=== PATIENT | female | born 1975 | race Caucasian/White ===

== ENCOUNTER 2021-11-15 10:40 | Day surgery (SDC) | payer OTHER ==
[2021-11-15] MEDS ORDERED: MORPHINE 4 MG/ML SYR ONE (11:40)
[2021-11-15] MEDS ORDERED: NA CHLORIDE 0.9% 1,000 ML ONE (11:40)
[2021-11-15] MEDS ORDERED: ONDANSETRON 4 MG/2 ML VIAL ONE ×3 (11:40→14:13)
[2021-11-15 11:49] LABS: Absolute Lymphocytes (CBC) 1.5 K/uL (0.7-4.9); Hematocrit 36.1 % (36.0-45.0); Lymphocytes % 8.1 % (15.3-44.8); RBC Red Blood Cell Count 4.61 M/uL (3.86-4.86)
[2021-11-15 12:05] LABS: Albumin 3.2 g/dL (3.4-5.0); Bilirubin Total 0.2 mg/dL (0.2-1.0); Potassium 3.6 mmol/L (3.5-5.1); Protein, Total 6.7 g/dL (6.4-8.2)
[2021-11-15 12:08] LABS: Urine Blood 3+ (Negative); Urine Glucose Negative (Negative); Urine Protein 3+ (Negative); Urine Specific Gravity 1.025 (1.005-1.030)
[2021-11-15 12:16] LABS: Urine Specific Gravity/Preg 1.025 (1.005-1.030)
--- NOTE | 2021-11-15 12:46 | RAD REPORT ---
EXAM DESCRIPTION: CTAbdomen Pelvis W Contrast - 11/15/2021 12:31 pm CLINICAL HISTORY: Abdominal pain. LLQ abdominal pain COMPARISON: No comparisons TECHNIQUE: Biphasic CT imaging of the abdomen and pelvis was performed with 100 ml non-ionic IV cont rast. All CT scans are performed using dose optimization technique as appropriate and may include automated exposure control or mA/KV adjustment according to patient size. FINDINGS: The lung bases are clear.Cholecystectomy. The liver, spleen, pancreas, adrenal glands and right kidney are within normal limits. A large 15 x 12 mm stone is present proximal left ureter resulting in severe left-sided hydronephrosi s. Moderate perinephric fluid is seen on the left as well. A few punctate stones are present in the i nferior calices of the left kidney also. No bowel obstruction, free air, free fluid or abscess. The appendix is normal. No evidence of signi ficant lymphadenopathy. No suspicious bony findings. IMPRESSION: A large stone is present in the proximal left ureter resulting in severe left-sided hydr onephrosis. Moderate surrounding perinephric fluid fat stranding is present. Additional punctate left-sided nephrolithiasis is present.
[2021-11-15] MEDS ORDERED: CEFTRIAXONE 2000 MG/VIAL ONE (13:09)
[2021-11-15] MEDS ORDERED: FENTANYL CITR 100 MCG/2 ML ONE (13:42)
[2021-11-15] MEDS ORDERED: LIDOCAINE 1% MPF 5 ML VIAL ONE (13:43)
[2021-11-15] MEDS ORDERED: propofoL 200 MG/20 ML VIAL IV ONE (13:43)
[2021-11-15] MEDS ORDERED: MIDAZOLAM HCL 2 MG/2 ML INJ ONE (13:43)
[2021-11-15] MEDS ORDERED: Ringers Lactate 1,000 ML IV ONE (13:43)
[2021-11-15] MEDS ORDERED: dexAMETHasone 10 MG/ML VIAL ONE (14:12)
[2021-11-15] MEDS ORDERED: EPHEDRINE SULF 50 MG/ML VIAL ONE (14:24)
--- NOTE | 2021-11-15 14:28 | EDPHYS ---
Physician Documentation [facility] Name: Pamela Alcala Age: 46 yrs Sex: Female : 1975 Arrival Date: 11/15/2021 Time: 10:41 Bed 8 Private MD: ED Physician Amado De La Rosa HPI: 11/15 11:30 This 46 yrs old Female presents to ER via Ambulatory with complaints of Back Pain - jmm left side. 11:30 The patient presents with pain that is acute. Onset: The symptoms/episode jmm began/occurred acutely, today. The pain radiates to the abdomen. Associated signs and symptoms: Pertinent positives: vomiting. Modifying factors: The patient symptoms are alleviated by nothing, the patient symptoms are aggravated by movement. The patient has not experienced similar symptoms in the past. Is a 46-year-old female with history of diabetes mellitus, hypertension the presents emerged department with complaints of left flank pain beginning earlier today with vomiting. Patient was treated for UTI last week due to hematuria. . Historical: - Allergies: 11:08 No Known Allergies; iw - Home Meds: 11:08 Metformin Oral [Active]; Bupropion Oral [Active]; Metoprolol Tartrate Oral [Active]; iw - PMHx: 11:08 Diabetes mellitus; Hypertensive disorder; iw - PSHx: 11:08 hysterectomy; Cholecystectomy; iw - Immunization history:: Client reports receiving the 2nd dose of the Covid vaccine. - Social history:: Smoking status: . ROS: 11:30 Constitutional: Negative for fever, chills, and weight loss, Cardiovascular: Negative jmm for chest pain, palpitations, and edema, Respiratory: Negative for shortness of breath, cough, wheezing, and pleuritic chest pain. 11:30 Abdomen/GI: Positive for vomiting. 11:30 Back: Positive for flank pain, on the left. 11:30 All other systems are negative. Exam: 11:30 Constitutional: This is a well developed, well nourished patient who is awake, alert, jmm and in no acute distress. Head/Face: atraumatic. Eyes: EOMI, no conjunctival erythema appreciated ENT: Moist Mucus Membranes Neck: Trachea midline, Supple Chest/axilla: Normal chest wall appearance and motion. Cardiovascular: Regular rate and rhythm. No edema appreciated Respiratory: Normal respirations, no respiratory distress appreciated Abdomen/GI: Non distended, soft 11:30 Back: pain, that is moderate, of the left flank. 11:30 Musculoskeletal/extremity: ROM: intact in all extremities. 11:30 Skin: Appearance: Color: normal in color. 11:30 Neuro: Orientation: is normal, Mentation: is normal, Memory: is normal. 11:30 Psych: Behavior/mood is pleasant, cooperative. Vital Signs: 11:07 Pulse 113; Resp 18; Temp 99.1; Pulse Ox 98% on R/A; Weight 81.65 kg; Height 5 ft. 4 in. iw (162.56 cm); Pain 9/10; 12:00 BP 102 / 63; Pulse 75; Resp 18; Pulse Ox 100% ; jh6 13:21 BP 99 / 69; Pulse 75; Resp 17 S; Pulse Ox 100% on R/A; jd3 11:07 Body Mass Index 30.90 (81.65 kg, 162.56 cm) iw MDM: 11:31 Patient medically screened. nicki 13:17 Data reviewed: vital signs, nurses notes. Counseling: I had a detailed discussion with nicki the patient and/or guardian regarding: the historical points, exam findings, and any diagnostic results supporting the discharge/admit diagnosis, lab results, radiology results. ED course: I discussed the patient with Dr. Siegel who will take the patient to the OR. 11/15 11:32 Order name: CBC with Diff; Complete Time: 11:55 [facility] 11/15 11:32 Order name: CMP; Complete Time: 12:07 [facility] 11/15 11:32 Order name: Lipase; Complete Time: 12:07 [facility] 11/15 11:55 Order name: Urine Culture [facility] 11/15 12:08 Order name: Urine Dipstick-Ancillary; Complete Time: 12:11 [facility] 11/15 12:08 Order name: Urine --Ancillary (enter results); Complete Time: 12:22 11/15 11:32 Order name: IV Saline Lock; Complete Time: 11:43 [facility] 11/15 11:32 Order name: Labs collected and sent; Complete Time: 11:43 [facility] 11/15 11:34 Order name: CT Abd/Pelvis - IV Contrast Only; Complete Time: 12:52 [facility] 11/15 13:07 Order name: SARS-COV-2 RT PCR (Document "Date of Onset" if Symptomatic); Complete Time: jd3 14:27 11/15 11:32 Order name: Urine Dipstick-Ancillary (obtain specimen); Complete Time: 12:07 [facility] 11/15 11:32 Order name: Urine Test (obtain specimen); Complete Time: 12:07 [facility] Administered Medications: 11:42 Drug: NS 0.9% 1000 ml Route: IV; Rate: 1 bolus; Site: right antecubital; jd3 11:42 Drug: Zofran (Ondansetron) 4 mg Route: IVP; Site: right antecubital; jd3 11:43 Drug: morphine 4 mg Route: IVP; Site: right antecubital; jd3 13:09 Drug: Rocephin (cefTRIAXone) 2 grams Route: IV; Rate: calculated rate; Site: right jh6 antecubital; Disposition Summary: 11/15/21 14:27 Hospitalization Ordered Hospitalization Status: Observation [facility] Provider: Atilio Siegel [facility] Location: Operating Room [facility] Condition: Stable [facility] Problem: new [facility] Symptoms: are unchanged [facility] Bed/Room Type: Standard [facility] Room Assignment: [facility] Diagnosis - Calculus of ureter [facility] - UTI/ Urinary tract infection, site not specified [facility] Discharge Instructions: - Discharge Summary Sheet eb Forms: - Medication Reconciliation Form [facility] - SBAR form eb Addendum: 11/17/2021 07:28 Co-signature as Attending Physician, Amado De La Rosa MD I agree with the assessment and k dr plan of care. Signatures: Dispatcher [employer] EDNH Amado De La Rosa MD MD kdr Mickail, Joel, PA PA [facility] Dara Miles, RN FELIPE iw Lenny Davis RN RN jd3 Hafsa Kebede RN RN jh6
--- NOTE | 2021-11-15 14:28 | ER ---
Nurse's Notes [facility] Name: Pamela Alcala Age: 46 yrs Sex: Female : 1975 Arrival Date: 11/15/2021 Time: 10:41 Bed 8 Private MD: Diagnosis: Calculus of ureter;UTI/ Urinary tract infection, site not specified Presentation: 11/15 11:07 Chief complaint: Patient states: the other day she had full check up and was told she iw had a UTI with blood in her urine and was put on abx, finished yesterday, and this morning woke up with left mid back pain. Coronavirus screen: At this time, the client does not indicate any symptoms associated with coronavirus-19. Ebola Screen: Patient negative for fever greater than or equal to 101.5 degrees Fahrenheit, and additional compatible Ebola Virus Disease symptoms Patient denies exposure to infectious person. Patient denies travel to an Ebola-affected area in the 21 days before illness onset. No symptoms or risks identified at this time. Initial Sepsis Screen: Does the patient meet any 2 criteria? No. Patient's initial sepsis screen is negative. Does the patient have a suspected source of infection? No. Patient's initial sepsis screen is negative. Risk Assessment: Do you want to hurt yourself or someone else? Patient reports no desire to harm self or others. Onset of symptoms was November 15, 2021. 11:07 Method Of Arrival: Ambulatory iw 11:07 Acuity: CROW 3 iw Historical: - Allergies: 11:08 No Known Allergies; iw - Home Meds: 11:08 Metformin Oral [Active]; Bupropion Oral [Active]; Metoprolol Tartrate Oral [Active]; iw - PMHx: 11:08 Diabetes mellitus; Hypertensive disorder; iw - PSHx: 11:08 hysterectomy; Cholecystectomy; iw - Immunization history:: Client reports receiving the 2nd dose of the Covid vaccine. - Social history:: Smoking status: . Screenin:33 Abuse screen: Denies threats or abuse. Nutritional screening: Nutritional screening: No jd3 deficits noted. Tuberculosis screening: No symptoms or risk factors identified. Fall Risk Ambulatory Aid- None/Bed Rest/Nurse Assist (0 pts). Gait- Normal/Bed Rest/Wheelchair (0 pts) Mental Status- Oriented to own ability (0 pts). Total Elena Fall Scale indicates No Risk (0-24 pts). Assessment: 11:32 General: Appears in no apparent distress. comfortable, Behavior is calm, cooperative, jd3 appropriate for age. Pain: Complains of pain in left flank Quality of pain is described as radiating. Neuro: Level of Consciousness is awake, alert, obeys commands, Oriented to person, place, time, situation. Cardiovascular: Denies chest pain, Capillary refill < 3 seconds Patient's skin is warm and dry. Respiratory: Airway is patent Respiratory effort is even, unlabored, Respiratory pattern is regular, symmetrical, Denies cough, shortness of breath. GI: No signs and/or symptoms were reported involving the gastrointestinal system. : No signs and/or symptoms were reported regarding the genitourinary system. EENT: No signs and/or symptoms were reported regarding the EENT system. Derm: Skin is intact, Skin is dry, Skin is normal, Skin temperature is warm. Musculoskeletal: Circulation, motion, and sensation intact. Range of motion: intact in all extremities. 13:20 Reassessment: Patient appears in no apparent distress at this time. Patient and/or jd3 family updated on plan of care and expected duration. Pain level reassessed. Patient is alert, oriented x 3, equal unlabored respirations, skin warm/dry/pink. report given to OR nurses. pt to OR with OR nurse. Vital Signs: 11:07 Pulse 113; Resp 18; Temp 99.1; Pulse Ox 98% on R/A; Weight 81.65 kg; Height 5 ft. 4 in. iw (162.56 cm); Pain 9/10; 12:00 BP 102 / 63; Pulse 75; Resp 18; Pulse Ox 100% ; jh6 13:21 BP 99 / 69; Pulse 75; Resp 17 S; Pulse Ox 100% on R/A; jd3 11:07 Body Mass Index 30.90 (81.65 kg, 162.56 cm) ED Course: 10:41 Patient arrived in ED. am2 11:08 Triage completed. iw 11:09 Arm band placed on. iw 11:18 Sherif Camargo PA is PHCP. [facility] 11:18 Amado De La Rosa MD is Attending Physician. [facility] 11:30 Lenny Davis RN is Primary Nurse. jd3 11:33 Patient has correct armband on for positive identification. Bed in low position. Call jmaverick light in reach. Side rails up X 1. Pulse ox on. NIBP on. 11:43 Inserted saline lock: 20 gauge in right antecubital area, using aseptic technique. j Blood collected. placed by [facility]. 12:[address] 6 12:33 CT Abd/Pelvis - IV Contrast Only In Process Unspecified. EDMS 14:27 Atilio Siegel MD is Hospitalizing Provider. ermelinda Administered Medications: 11:42 Drug: NS 0.9% 1000 ml Route: IV; Rate: 1 bolus; Site: right antecubital; jd3 11:42 Drug: Zofran (Ondansetron) 4 mg Route: IVP; Site: right antecubital; jd3 11:43 Drug: morphine 4 mg Route: IVP; Site: right antecubital; j 13:09 Drug: Rocephin (cefTRIAXone) 2 grams Route: IV; Rate: calculated rate; Site: right [facility] antecubital; Outcome: 14:27 Decision to Hospitalize by Provider. [facility] 14:28 Patient left the ED. iw Signatures: Dispatcher [employer] EDMS Sherif Camargo PA PA jmm Williams, Irene, RN Marcela Davenport Jonathon RN Hafsa Tomlinson RN RN jh6
[2021-11-15] MEDS ORDERED: HYDROCODONE/APAP 5/325 MG TAB PO PRN (14:47)
[2021-11-15] MEDS ORDERED: PHENAZOPYRIDINE 100MG TAB PO ONE ×2 (14:47→16:03)
--- NOTE | 2021-11-15 14:54 | RAD REPORT ---
EXAM DESCRIPTION: RAD - Urography Retrograde - 11/15/2021 2:42 pm CLINICAL HISTORY: ICD N 20.0 FINDINGS: 17 fluoroscopic spot images obtained. Fluoroscopy time 1.2 minutes Left ureter was cannulated and contrast administered. Subsequently an ureteral stent was placed. Exam ination was performed by Dr Siegel
[2021-11-15] MEDS ORDERED: HYDROCODONE/APAP 5/325 MG TAB ONE (16:03)
[2021-11-15 16:33] VITALS: BP 110/57; TEMP 97.7; O2SAT 99
--- NOTE | 2021-11-15 18:58 | CON ---
Reason For Consultation: Obstructive ureterolithiasis. History Of Present Illness: Ms. Alcala is a 46-year-old woman on medications for polycystic ovaria n syndrome and with a history of anxiety disorder. G3, P3, vaginal deliveries, who presents with sev ere left flank pain that radiated into the anterior abdomen starting this morning. She notes she was seen last week with her primary care physician with microscopic blood in the urine and some fever or febrile symptoms associated with what was thought to be a UTI. She was treated with an antibiotic w hich sounds like Macrobid at that time and her symptoms improved. She woke up this morning, however, with the pain and presented to the emergency department for evaluation. She denies any associated f ever or chills at this point. She has had some nausea but no vomiting. Past Medical History: Polycystic ovarian syndrome and anxiety disorder. Past Surgical History: 1.Cholecystectomy in 1998. 2.Laparoscopic hysterectomy in 2005. Allergies: SHE DENIES ANY KNOWN DRUG ALLERGIES. Social History: She denies any history of smoking or recreational drug use. Physical Examination: General: She is somewhat anxious appearing, but in no acute distress. There is no dyspnea or signs of respiratory distress. No cervical or supraclavicular adenopathy or thyromegaly is noted. ABDOMEN: Soft, nontender, and nondistended with no rebound or guarding. She has mild left upper luc drant abdominal tenderness to deep palpation and CVA tenderness, severe, present on the left. MSK: She is ambulatory with ease and without use of walking aids or signs of musculoskeletal limitat ions. Laboratory Data: I reviewed the images of a CT scan performed today at 12:31 p.m. which reveals the presence of a 15 x 12 mm stone in the proximal left ureter. This was an IV contrast scan; so, there were no significant renal calculi noted, but potential for small 2 or 3 mm calculi, particularly in t he lower pole is possible. The right kidney was normal. The left kidney was massively hydronephroti c with significant perinephric stranding present. Assessment And Recommendations: This is a 46-year-old, G3, P3, vaginal deliveries, a woman with anxi ety disorder and polycystic ovarian syndrome who presents with first-time stone forming a 15 mm calcu andria within her left proximal ureter causing massive hydronephrosis, perinephric stranding, and left f lank pain. I recommended to the patient, urgent attempt at left ureteral stent placement, but I counseled her on the potential need for left percutaneous nephrostomy tube showed the stent not pass. I explained th e risks of the procedure to include the risk of bleeding and infection, urethral stricture formation, injury to the ureter, and failure to achieve the desired result of successful stent placement. I al so explained that she would need to be transferred to the [facility] for percutaneous nephrostomy tube placement should that be required. She completed the consent with my guidance and will be randal geagus accordingly. She received a dose of ceftriaxone IV antimicrobial prophylaxis in the emergency de partment. We will determine whether she requires inpatient admission based on whether she is or beco mes febrile at any point during the emergency department via a perioperative and postoperative course . If so, we will admit her accordingly for observation and management. LISA/BARRY Voice ID: [id number] Report ID: [id number]
--- NOTE | 2021-11-16 02:16 | OP ---
Surgeon: GAEL CHILDS Preoperative Diagnoses: 1.Left obstructive ureterolithiasis 15 mm. 2.Left hydronephrosis. 3.Left flank pain. Postoperative Diagnoses: 1.Left obstructive ureterolithiasis 15 mm. 2.Left hydronephrosis. 3.Left flank pain. 4.High-grade left ureteral obstruction. Principal Procedures: 1.Cystoscopy. 2.Left retrograde pyelography. 3.Complicated left ureteral stent placement. Indication For Procedure: Ms. Alcala presented to the emergency department this morning with compl aints of severe left flank pain radiating into the anterior abdomen associated with the presence of a 15 mm proximal ureteral calculus causing severe obstruction with hydronephrosis and perinephric stra nding. She presents for definitive operative management to relieve the obstruction of the kidney and was counseled on the potential need for percutaneous nephrostomy placement. Procedure In Detail: The patient was consented in the preoperative holding area before being transfe rred to the operative suite, where general anesthesia was induced. She was given ceftriaxone IV anti microbial prophylaxis in the Emergency Department which was sufficient for the operative excursion, a nd pneumo boots were provided for DVT prophylaxis. She was placed in the lithotomy position, padded, and secured to the table appropriately. Her genitalia were prepped using Hibiclens and draped in st andard fashion. The case was begun using a 22-Vietnamese rigid cystoscope to traverse the urethra and in to the bladder. The bladder was surveyed and there were no mucosal lesions, foreign bodies, or stone s noted. The ureteral orifices were orthotopic in location, and the left ureteral orifice was cannul ated using the tip of a 5-Vietnamese ureteral access catheter. Left retrograde pyelography: Using a 70:30 mixture of Omnipaque and saline, the contrast was injected into the lumen of the 5-Fren ch ureteral access catheter and did propagate with some resistance up a dilated distal ureter before meeting a point of obstruction in the proximal ureter where a visible radio-opaque large calculus was noted to be present. The contrast would not pass beyond the stone into the kidney, which had a degr ee of contrast present from the prior IV contrast CT administered. There was evident massive hydrone phrosis. I then advanced the 5-Vietnamese ureteral access catheter into the ureter just beneath the ston e and again forcefully injected contrast in an effort to dislodge the stone from its impacted positio n sufficiently to have some contrast emanate around the stone. Despite multiple attempts at that, no significant contrast emanated around the stone and into the ureter proximal to it. I then employed a Sensor wire to attempt to pass beyond the stone into the collecting system, but the Sensor wire sim ply coiled around the sides of the stone. As a result, I switched to a 0.35 Glidewire, which I passe d via the 5-Vietnamese ureteral access catheter. It also would coil around the stone and would not pass successfully beyond the stone into the collecting system. Multiple attempts were made, and right [facility], one last attempt was made and the wire did successfully pass beyond the stone and into the collecting system where it coiled in the hydronephrotic space appropriately. I then attempted to pass the 5-Vietnamese ureteral access catheter over the Glidewire into the collecting system beyond the stone, but it would not pass; so, I utilized a 4.8-Vietnamese double-J stent, which I was able to pass be yond the stone with a mild degree of difficulty, but ultimately get it into the collecting system whe re it coiled within the renal pelvis successfully. An additional coil was formed within the bladder and so I decompressed her bladder of fluid and urine, took the patient out of the lithotomy position, and she was then awakened from general anesthesia. She was then transferred to a stretcher before courtney amos transferred to the recovery room in good condition. Complications: None. Discharge Disposition: She will be observed in the recovery and if she has no ongoing signs of SIRS or active infection with absence of a febrile reaction and otherwise her pain can be reasonably contr olled, we will plan to discharge her home today. She will be informed that should she have any fever s with temperatures greater than 100.4 Fahrenheit, she should notify us for possible admission or com e back to the emergency department. She will ultimately require follow up in the Urology Clinic to yoseph broderick definitive left ureteroscopy with laser lithotripsy of her large stone. She will also be a nikki date for ESWL given the radio-opaque nature of the stone if she wanted to trial that approach. LISA/EDWINL Voice ID: [id number] Report ID: [id number]
== END 2021-11-15 16:32 | disposition home or self-care (01) ==
LOC: ER 10:40 → DS 15:28
PROVIDERS: ATTEND Urology
PROC: 0T9780Z Drainage of Left Ureter with Drainage Device, Via Natural or Artificial Opening Endoscopic (ICD-10-PCS; principal; 2021-11-15 13:00)
DX: N13.2 Hydronephrosis with renal and ureteral calculous obstruction (principal); R10.9 Unspecified abdominal pain; Z20.822 Contact with and (suspected) exposure to COVID-19
CPT/HCPCS: 87088; 85025; 87086; 36415; 81025; 87077; 87186; 81003; 83690; 80053; 74177; 74420; 96375; 96374; 99284; 52332; U0003; Q9967; J2704; J2250; J3010; J1100; J7120; J7030; J2405 ×3; J0696

== ENCOUNTER 2021-11-26 06:03 | Day surgery (SDC) | payer OTHER ==
[2021-11-26] MEDS ORDERED: Ringers Lactate 1,000 ML IV ONE (06:43)
[2021-11-26] MEDS ORDERED: CIPROFLOXACIN HCL 500 MG TAB ONE (06:48)
[2021-11-26] MEDS ORDERED: CELECOXIB 100 MG CAPSULE ONE (07:08)
[2021-11-26] MEDS ORDERED: ACETAMINOPHEN 500 MG TAB ONE (07:08)
[2021-11-26] MEDS ORDERED: propofoL 200 MG/20 ML VIAL IV ONE ×2 (07:09→08:37)
[2021-11-26] MEDS ORDERED: FENTANYL CITR 100 MCG/2 ML ONE (07:10)
[2021-11-26] MEDS ORDERED: MIDAZOLAM HCL 2 MG/2 ML INJ ONE (07:10)
[2021-11-26] MEDS ORDERED: LIDOCAINE 1% MPF 5 ML VIAL ONE (07:10)
[2021-11-26] MEDS ORDERED: PHENAZOPYRIDINE 100MG TAB PO ONE ×2 (07:40→10:16)
[2021-11-26] MEDS ORDERED: HYDROCODONE/APAP 5/325 MG TAB PO PRN (07:40)
[2021-11-26] MEDS ORDERED: dexAMETHasone 10 MG/ML VIAL ONE (08:01)
[2021-11-26] MEDS ORDERED: KETOROLAC 30 MG/ML INJ ONE (08:01)
[2021-11-26] MEDS ORDERED: ONDANSETRON 4 MG/2 ML VIAL ONE (08:03)
[2021-11-26] MEDS ORDERED: HYDROCODONE/APAP 5/325 MG TAB ONE (10:16)
[2021-11-26 10:41] VITALS: BP 116/53; TEMP 97; O2SAT 99
--- NOTE | 2021-11-26 20:52 | OP ---
Surgeon: GAEL CHILDS Preoperative Diagnosis: 15 mm proximal ureterolithiasis. Postoperative Diagnoses: 1.15 mm proximal ureterolithiasis. 2.Proximal left ureteral stricture disease due to impacted calculus. Principal Procedures: 1.Cystoscopy. 2.Left retrograde pyelography. 3.Left ureteroscopy with laser lithotripsy. 4.Stone basketing. 5.Left ureteral stent exchange. Indication For Procedure: Mrs. Alcala presented to the [facility] after having been seen via [facility] with an obstructing 15 mm proximal ureteral calculus with associated perineph yanira stranding and signs of SIRS, possible sepsis. She underwent left ureteral stent placement on that was complicated by the extensive impaction of the calculus and inability to get contrast to pass beyond the stone into the collecting system. However, with several attempts, I was able to pass a Glidewire beyond the stone into the collecting system and a 4.8-Malaysian stent. She presents to day for definitive management. Procedure In Detail: The patient was consented in the preoperative holding area before being transfe rred to the operative suite, where general anesthesia was induced. She had been given a dose of cipr ofloxacin 500 mg oral antimicrobial prophylaxis about 1 hour prior to incision. Pneumo boots were pr ovided for DVT prophylaxis. She was placed in the lithotomy position, padded and secured to the tabl e appropriately. Her genitalia were prepped using Hibiclens and she was draped in standard fashion. The case was begun using a 22-Malaysian rigid cystoscope to traverse the urethra and into the bladder. An alligator grasper was used to grasp the stent after the bladder was decompressed of fluid and uri ne. The stent was then delivered via the meatus leaving the proximal tip of the stent in the proxima l ureter and in fact fluoroscopically still within the renal pelvis. As a result, I passed a Sensor wire via the 4.8-Malaysian stent and did coil it within the putative collecting system. Over the Sensor wire, I then passed a dual-lumen catheter after removing the stent and performed a retrograde pyelog rubén. Left retrograde pyelography: Using a 70:30 mixture of Omnipaque and saline, contrast was injected vi a the second lumen of the dual-lumen catheter and did propagate up a dilated distal ureter before enc ountering the stone, which was visible fluoroscopically. A wisp of contrast did go beyond the stone, but significant obstruction was still present. I then advanced the dual-lumen catheter up the urete r just distal to the stone and injected another bolus of contrast, this time having more contrast pro pagate into a still-dilated collecting system, confirming appropriate intraluminal location of the wi re within the renal upper pole. I then removed the dual-lumen catheter and utilized a semi-rigid ure teroscope, which was guided up the ureter with the aid of a Bentson guidewire placed via the second l umen of the dual-lumen catheter. The Bentson guidewire was removed and the semi-rigid ureteroscope w as then advanced to the level of the stone, where a 365 nanometer laser fiber with power settings of 0.8 joules and 8 hertz was initially used before alternating with 0.4 joules and 20 hertz and ultimat ranjith 0.8 joules and 15 hertz to completely dust the very large stone and remove it out of its site of impaction within the ureter. I then visualized the ureter after the stone had been removed, and whil e the Sensor wire was indeed in the appropriate intraluminal location, there was an area of stricture disease that had formed due to the severe impacted nature of the stone. An image was taken of this documenting it. I thus removed the semi-rigid ureteroscope and again injected a bolus of contrast by backloading the dual-lumen catheter over the indwelling safety wire. There was a clear point of ure teral narrowing and obstruction at the location where the stone was previously, but contrast did proc eed up along the wire and entered the collecting system appropriately. So as a result, I then again passed the semi-rigid ureteroscope into the ureter, visualizing all of the stone dust there and utili zed a 1.9-Malaysian basket to grab several of the stone fragments on multiple passes and removed them fr om within the ureteral lumen. These were left in the bladder each time for ease of return into the u reter. After any significant stone size fragments were removed using the basket, I then placed a rig id cystoscope backloaded over the safety wire into the bladder and passed a 7-Malaysian by 26 cm double- J stent. A coil was observed fluoroscopically in the upper pole and one cystoscopically was formed i n the bladder. Her bladder was then decompressed of fluid and urine, and the stone dust was collecte d. This was sent for chemical analysis. The patient was then awakened from general anesthesia, take n out of the lithotomy position, transferred to a stretcher, and then transferred to the [facility] in good condition. Complications: None. Discharge Disposition: She should maintain the ureteral stent for at least 6-8 weeks given the alrea dy presence of the stricture to allow hopeful successful healing in an open configuration. I will di scharge her with 7 days of ciprofloxacin to ensure clearance of her prior infection. LISA/MODL Voice ID: [id number] Report ID: [id number]
== END 2021-11-26 10:33 | disposition home or self-care (01) ==
LOC: OR 06:03
PROVIDERS: ATTEND Urology
PROC: 0TC78ZZ Extirpation of Matter from Left Ureter, Via Natural or Artificial Opening Endoscopic (ICD-10-PCS; 2021-11-26)
PROC: 0T778DZ Dilation of Left Ureter with Intraluminal Device, Via Natural or Artificial Opening Endoscopic (ICD-10-PCS; 2021-11-26)
PROC: 0T9780Z Drainage of Left Ureter with Drainage Device, Via Natural or Artificial Opening Endoscopic (ICD-10-PCS; principal; 2021-11-26 07:30)
DX: N13.2 Hydronephrosis with renal and ureteral calculous obstruction (principal); R10.9 Unspecified abdominal pain; N39.0 Urinary tract infection, site not specified; Z20.822 Contact with and (suspected) exposure to COVID-19
CPT/HCPCS: 88300; 82360; 74450; 51610; 53899; 52332; U0003; J2704 ×2; J2250; J3010; J1100; J7120; J2405

== ENCOUNTER 2022-05-27 06:11 | Day surgery (SDC) | payer OTHER ==
[2022-05-23 15:52] LABS: Absolute Lymphocytes (CBC) 2.6 K/uL (0.7-4.9); Hematocrit 36.3 % (36.0-45.0); Lymphocytes % 24.2 % (15.3-44.8); MCV 82.3 fL (80-100); MPV 9.9 fL (7.6-11.3); RBC Red Blood Cell Count 4.42 M/uL (3.86-4.86)
[2022-05-23 16:01] LABS: Potassium 3.6 mmol/L (3.5-5.1)
--- NOTE | 2022-05-26 12:18 | EKG ---
Test Date: 2022-05-23 Test Time: 14:41:56 Platen Builder Up: MICKEY MEASUREMENT RESULTS: Intervals: Rate: 80 PA: 174 QRSD: 104 QT: 382 QTc: 440 [place]: P: 63 PA: 174 QRS: 39 T: 67 INTERPRETIVE STATEMENTS: Normal sinus rhythm Normal ECG No previous ECG available for comparison Electronically Signed On 05-26-22 12:13:33 GYROSCOPIC INSTRUMENT MECHANIC by Pawan Pratt
[2022-05-27] MEDS ORDERED: AMPICILLIN SODIUM 2 GM/VIAL VIAL ONE (06:32)
[2022-05-27] MEDS ORDERED: Ringers Lactate 1,000 ML IV ONE (06:32)
[2022-05-27] MEDS ORDERED: GENTAMICIN 100 MG/100 ML BAG 0 ML IV ONE (06:33)
[2022-05-27] MEDS ORDERED: Gentamicin Inj 200 MG in NA CHLORIDE 0.9% 100 ML IV SCH (07:00)
[2022-05-27] MEDS ORDERED: LIDOCAINE 1% MPF 5 ML VIAL ONE (07:18)
[2022-05-27] MEDS ORDERED: MIDAZOLAM HCL 2 MG/2 ML INJ ONE (07:18)
[2022-05-27] MEDS ORDERED: propofoL 200 MG/20 ML VIAL IV ONE (07:18)
[2022-05-27] MEDS ORDERED: FENTANYL CITR 100 MCG/2 ML ONE ×2 (07:18→08:01)
[2022-05-27] MEDS ORDERED: ROCURONIUM 50 MG/5 ML VIAL IV ONE (07:34)
[2022-05-27] MEDS ORDERED: NS 0.9% VIAL 10 ML ONE (07:34)
[2022-05-27] MEDS ORDERED: dexAMETHasone 10 MG/ML VIAL ONE (07:58)
[2022-05-27] MEDS ORDERED: KETOROLAC 30 MG/ML INJ ONE (07:59)
[2022-05-27] MEDS ORDERED: ONDANSETRON 4 MG/2 ML VIAL ONE (08:00)
[2022-05-27] MEDS ORDERED: GLYCOPYRROLATE 0.2 MG/ML SYR ONE (08:31)
[2022-05-27] MEDS ORDERED: NEOSTIGMINE 1 MG/ML -5 ML ONE (08:31)
[2022-05-27] MEDS ORDERED: PHENAZOPYRIDINE 100MG TAB PO ONE ×2 (09:19→10:09)
[2022-05-27] MEDS ORDERED: HYDROCODONE/APAP 5/325 MG TAB PO PRN (09:19)
--- NOTE | 2022-05-27 09:22 | RAD REPORT ---
EXAM DESCRIPTION: RAD - Urethrocystogrphy Retrograde - 05/27/2022 8:56 am FINDINGS: There were 24 images acquired during a fluoroscopic assisted placement of a left ureteral stent. Images show stepwise placement with no suspicious or unexpected finding. Fluoro time was 50 seconds.
[2022-05-27] MEDS ORDERED: HYDROMORPHONE HCL 1 MG/ML INJ ONE (09:29)
[2022-05-27 09:46] VITALS: O2SAT 96
--- NOTE | 2022-05-27 09:56 | OP ---
Surgeon: GAEL CHILDS Preoperative Diagnoses: 1.Left hydronephrosis. 2.History of left ureterolithiasis. Postoperative Diagnoses: 1.Left hydronephrosis. 2.History of left ureterolithiasis. 3.Left proximal ureteral stricture disease. 4.Gabriel's plaques. Principal Procedures: 1.Cystoscopy with left retrograde pyelography. 2.Left ureteroscopy with laser incision and dilation of proximal ureteral stricture disease. 3.Ureteroscopy with laser lithotripsy of renal calculi. 4.Left ureteral stent placement. Indication For Procedure: Ms. Alcala is a 47-year-old woman, who presented via the emergency depar tment with an obstructing large proximal left ureteral calculus causing hydronephrosis and obstructio n. A stent was placed and eventually the stone was managed definitively using ureteroscopy with lase r lithotripsy, but I noted at the time of the procedure that there was significant impaction of the s tone and a high risk for development of stricture disease. As a result, the patient was recommended to keep the stent for an extended period of time, which was done, and 3 months after the stent was re moved, I recommended an ultrasound which was performed. This unfortunately revealed recurrence of th e left-sided hydronephrosis suggestive of recurrence of stricture disease. The ultrasound also visua lized what it thought to be a 7 mm renal calculus. Procedure In Detail: The patient was consented in the preoperative holding area before being transfe rred to operative suite where general anesthesia was induced. She was given ampicillin and gentamici n 2-3 mg/kg IV antimicrobial prophylaxis, and pneumo boots were provided for DVT prophylaxis. She wa s placed in the lithotomy position, padded and secured to the table appropriately and her genitalia w ere prepped with Hibiclens. She was draped in standard fashion, and the case was begun using a 22-Fr ench rigid cystoscope to traverse the urethra and into the bladder with ease. The bladder was decomp ressed of urine and then refilled with sterile saline. The left ureteral orifice was visible and ort hotopic in location. I cannulated it using the tip of a 5-Yemeni ureteral access catheter and perfor med a retrograde pyelogram. Left retrograde pyelography: Using a 70:30 mixture of Omnipaque and saline, contrast was injected via the 5-Yemeni ureteral access catheter and did propagate up a nondilated distal ureter before the traversing a point of ureteral n arrowing at the UPJ and entering the renal pelvis where there was gnaa-zv-omaohdly pelviectasis and m ild caliectasis noted. Because of this narrowing that was at the level previously occupied by the ob structing calculus, I then passed a Sensor wire via the 5-Yemeni ureteral access catheter. It initia lly coiled at the level of the putative stricture disease, but I eventually was able to navigate it s uccessfully into the upper pole of the kidney. I then utilized a dual-lumen catheter to navigate a [employer] guidewire alongside the Sensor wire and successfully coiled within the upper pole of the kidne y. Over the [employer] guidewire, I then passed a flexible ureteroscope into the proximal ureter to a p oint of obstruction felt and visualized the area. There was some stricture disease that was somewhat filmy in that location with more dense component of the stricture more superiorly and laterally. As a result, I utilized a 200 nm laser fiber to incise the filmy area of stricture disease and into the tissues in a stellate fashion and dividing the scar tissue until healthy bleeding tissue was encount ered. I was then able to navigate the ureteroscope beyond the point of obstruction and into the uppe r pole of the kidney, which was surveyed. There was some cloudy urine in that location and within th e mid pole calyx was noted an approximately 7 mm Gabriel's plaque. I utilized the laser fiber to dis rupt the calculi forming in that location and then moved on surveying into the lower pole where an ad ditional small Gabriel's plaque was identified. It was also fragmented using the laser fiber. Caute ry setting for this entirety of the procedure was 1 joule and 12 hertz. I then surveyed back into th e proximal ureter and again incised a bit further to ensure the scar tissue was well opened before th en removing the ureteroscope. I then passed the dual-lumen catheter over the safety wire back into t he distal ureter and again performed another retrograde pyelogram. Repeat left retrograde pyelography: Injection of contrast did reveal a more dilated passage area over the area of stricture disease noted with a slight degree of contrast extravasation, which is desired indicative of adequacy of the incis ion. As a result, I passed the 10-Yemeni ureteral dual-lumen catheter all the way into the upper bobby e of the kidney with ease and aspirated the kidney of the cloudy urine present there. I allowed that to dilate the area of stricture since the balloon dilator was only 12-Yemeni, which was a minimal di fference over the 10-Yemeni, which passed easily, so the balloon would have done nothing additional o garo the laser incision that had already been performed. I thus removed the dual-lumen catheter and b ack-loaded the cystoscope over the safety wire and placed a 7-Yemeni by 26 cm double-J left ureteral stent with a coil observed fluoroscopically in the renal pelvis and 1 cystoscopically formed within t he bladder. The bladder was then decompressed of fluid and urine, and then the case was completed. The patient was taken out of the lithotomy position, awakened from general anesthesia, transferred to a stretcher, and transferred to the recovery room in good condition. Complications: None. Discharge Disposition: She should maintain the ureteral stent for at least 6-8 weeks to allow adequa cy of healing hopefully in an open configuration, and subsequent followup should be established 3 mon ths after that with another ultrasound obtained hopefully to reveal the absence of ongoing hydronephr osis. LISA/BARRY Voice ID: [id number] Report ID: [id number]
[2022-05-27] MEDS ORDERED: HYDROCODONE/APAP 5/325 MG TAB ONE (10:09)
[2022-05-27 10:24] VITALS: BP 98/62; TEMP 96.2
== END 2022-05-27 10:20 | disposition home or self-care (01) ==
LOC: OR 06:11
PROVIDERS: ATTEND Urology
PROC: 0TF78ZZ Fragmentation in Left Ureter, Via Natural or Artificial Opening Endoscopic (ICD-10-PCS; 2022-05-27)
PROC: 0T778DZ Dilation of Left Ureter with Intraluminal Device, Via Natural or Artificial Opening Endoscopic (ICD-10-PCS; 2022-05-27)
PROC: 0T9780Z Drainage of Left Ureter with Drainage Device, Via Natural or Artificial Opening Endoscopic (ICD-10-PCS; principal; 2022-05-27 07:30)
DX: N13.2 Hydronephrosis with renal and ureteral calculous obstruction (principal); N13.1 Hydronephrosis with ureteral stricture, not elsewhere classified
CPT/HCPCS: 36415; 51610; 74450; 80048; 82947; 85025; 87086; 87088; 93005; A4216; J0290; J1100; J1170; J1580; J2001; J2250; J2405; J2704; J2710; J3010; J7120

== ENCOUNTER 2022-07-29 15:13 | Emergency (ER) | payer OTHER ==
--- OUTSIDE RECORDS SUMMARY | 2022-07-29 15:16 | XMS REPORT | Continuity of Care Document ---
:1975 Author Organization [facility] t Address [address] [place] [address] Care Team Providers Name Role Phone Unavailable Unavailable Unavailable Payers Payer Name Policy Type Policy Number Effective Date Expiration Date Aubrie ROY 53 [id number] 2005 [facility] - 00:00:00 [facility] Problems Condition Condition Condition Status Onset Resolution Last Treating Co mments Source Name Details Category Date Date Treatment Clinician Date [id number] Complicate Problem Com mon d UTI [facility] (urinary - [facility] tract [facility] infection) [facility] [id number] Hydronephr Problem Com mon osis, left [facility] [id number] Ureterolit Problem Com mon hiasis [facility] [id number] Left flank Problem Co mmon pain [facility] [id number] Kidney Problem Common stone on [facility] left side 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 Allergies, Adverse Reactions, Alerts This patient has no known allergies or adverse reactions. Social History Social Habit Start Date Stop Date Quantity Comments Source History of Tobacco Use Co mmon [facility] Sex Assigned At Com [facility] Smoking Status Start Date Stop Date Source Never Smoker Common [facility] Medications Ordered Filled Start Stop Current Ordering Indication Dosage Frequency Signature Comments Components Source Medication Medication Date Date Medication? Clinician (SIG) Name Name Oxybutynin Oxybutynin 2021-07- No 1{table QD Oxybutynin Chloride ER Chloride ER 09-11 t} Chloride 10 MG 10 MG 00:00: 00:00 ER 10 MG 00 :00 Oxybutynin Oxybutynin 2021-07- No 1{table QD Oxybutynin Chloride ER Chloride ER 09-11 t} Chloride 10 MG 10 MG 00:00: 00:00 ER 10 MG 00 :00 Sulfamethox Sulfamethox 2021-07- No 1{table BID Sulfametho azole-Trime azole-Trime 09-11 t} xazole-Tri thoprim thoprim 00:00: 00:00 methoprim 800-160 MG 800-160 MG 00 :00 800-160 MG Rocephin Rocephin 2021-0 No 1g Commo n (Ceftriaxon (Ceftriaxon 6-30 S pirit e) e) 00:00: - [facility] Rocephin Rocephin 2021-0 No 1g Commo n (Ceftriaxon (Ceftriaxon 6-30 S pirit e) e) 00:00: - [facility] Rocephin Rocephin 2021-0 No 1g Commo n (Ceftriaxon (Ceftriaxon 6-30 S pirit e) e) 00:00: - [facility] Rocephin Rocephin 2021-0 No 1g Commo n (Ceftriaxon (Ceftriaxon 6-30 S pirit e) e) 00:00: - [facility] Rocephin Rocephin 2021-0 No 1g Commo n (Ceftriaxon (Ceftriaxon 6-30 S pirit e) e) 00:00: - [facility] Rocephin Rocephin 2021-0 No 1g Commo n (Ceftriaxon (Ceftriaxon 6-30 S pirit e) e) 00:00: - [facility] Rocephin Rocephin 2021-0 No 1g Commo n (Ceftriaxon (Ceftriaxon 6-30 S pirit e) e) 00:00: - [facility] Cephalexin Cephalexin 0 2022- No 1{capsu Cephalexin 500 MG 500 MG 01-16 le} 500 MG 00:00: 00:00 00 :00 Cephalexin Cephalexin 2021-0 2- No 1{capsu Cephalexin 500 MG 500 MG 01-16 le} 500 MG 00:00: 00:00 00 :00 metFORMIN metFORMIN No 1{table QD metFORMIN HCl 500 MG HCl 500 MG t_with_ HCl 500 MG a_meal} Metoprolol Metoprolol No 1{capsu QD Metoprolol Succinate Succinate le} Succinate 50 MG 50 MG 50 MG Metoprolol Metoprolol No 1{capsu QD Metoprolol Succinate Succinate le} Succinate 50 MG 50 MG 50 MG metFORMIN metFORMIN No 1{table QD metFORMIN HCl 500 MG HCl 500 MG t_with_ HCl 500 MG a_meal} Metoprolol Metoprolol No 1{capsu QD Metoprolol Succinate Succinate le} Succinate 50 MG 50 MG 50 MG metFORMIN metFORMIN No 1{table QD metFORMIN HCl 500 MG HCl 500 MG t_with_ HCl 500 MG a_meal} metFORMIN metFORMIN No 1{table QD metFORMIN HCl 500 MG HCl 500 MG t_with_ HCl 500 MG a_meal} Metoprolol Metoprolol No 1{capsu QD Metoprolol Succinate Succinate le} Succinate 50 MG 50 MG 50 MG Metoprolol Metoprolol No 1{capsu QD Metoprolol Succinate Succinate le} Succinate 50 MG 50 MG 50 MG metFORMIN metFORMIN No 1{table QD metFORMIN HCl 500 MG HCl 500 MG t_with_ HCl 500 MG a_meal} metFORMIN metFORMIN No 1{table QD metFORMIN HCl 500 MG HCl 500 MG t_with_ HCl 500 MG a_meal} Metoprolol Metoprolol No 1{capsu QD Metoprolol Succinate Succinate le} Succinate 50 MG 50 MG 50 MG metFORMIN metFORMIN No 1{table QD metFORMIN HCl 500 MG HCl 500 MG t_with_ HCl 500 MG a_meal} Metoprolol Metoprolol No 1{capsu QD Metoprolol Succinate Succinate le} Succinate 50 MG 50 MG 50 MG Vital Signs Vital Name Observation Time Observation Value Comments Source height 2022-07-23 10:15:00 64 [in_i] Common [facility] weight 2022-07-23 10:15:00 204 [lb_av] [facility] temperature 2022-07-23 10:15:00 98 [degF] [facility] bmi 2022-07-23 10:15:00 35.01 kg/m2 [facility] oximetry 2022-07-23 10:15:00 99 % [facility] respiratory rate 2022-07-23 10:15:00 18 /min Comm on [facility] blood pressure 2022-07-23 10:15:00 119 mm[Hg] Common [facility] - systolic [facility] blood pressure 2022-07-23 10:15:00 63 mm[Hg] Common [facility] diastolic [facility] height 2022-07-11 08:30:00 64 [in_i] [facility] weight 2022-07-11 08:30:00 203.8 [lb_av] [facility] temperature 2022-07-11 08:30:00 98.2 [degF] [facility] bmi 2022-07-11 08:30:00 34.98 kg/m2 [facility] oximetry 2022-07-11 08:30:00 99 % [facility] respiratory rate 2022-07-11 08:30:00 18 /min Comm on [facility] blood pressure 2022-07-11 08:30:00 110 [facility]Hg[facility] blood pressure 2022-07-11 08:30:00 68 mm[Hg] [facility] - diastolic [facility] height 2022-05-07 10:45:00 64 [in_i] Common [facility] weight 2022-05-07 10:45:00 205.4 [lb_av] Common [facility] temperature 2022-05-07 10:45:00 98.3 [degF] Common [facility] bmi 2022-05-07 10:45:00 35.25 kg/m2 Common [facility] oximetry 2022-05-07 10:45:00 99 % Common [facility] respiratory rate 2022-05-07 10:45:00 18 /min Comm on [facility] blood pressure 2022-05-07 10:45:00 122 mm[Hg] Common [facility] - systolic [facility] blood pressure 2022-05-07 10:45:00 58 mm[Hg] Common [facility] - diastolic [facility] height 2022-01-16 09:30:00 64 [in_i] [facility] weight 2022-01-16 09:30:00 204.2 [lb_av] [facility] temperature 2022-01-16 09:30:00 97.5 [degF] [facility] bmi 2022-01-16 09:30:00 35.05 kg/m2 [facility] oximetry 2022-01-16 09:30:00 98 % Common [facility] respiratory rate 2022-01-16 09:30:00 16 /min Comm on [facility] blood pressure 2022-01-16 09:30:00 116 mm[Hg] Common [facility] - systolic [facility] blood pressure 2022-01-16 09:30:00 60 mm[Hg] Common [facility] - diastolic [facility] Procedures This patient has no known procedures. Encounters Start End Encounter Admission Attending Care Care Encounter Source Date/Time Date/Time Type Type Clinicians Facility Department ID 2022-04-24 Outpatient [facility] ST[facility] [id number] Common 15:07:03 [facility] 2022-02-20 Outpatient STLMLC ST[facility]C [id number] Common 13:06:03 [id number] [facility] 2022-01-16 Outpatient STLMLC ST[facility]C [id number] Common 08:01: [facility] 2022-07-23 2022-07-23 (PROC) STLMLC STLMLC [id number] Co mmon 00:00:00 00:00:00 Procedure [facility] 2022-07-11 2022-07-11 OFFICE STLMLC STLMLC [id number] Co mmon 00:00:00 00:00:00 VISIT [facility] PT - CHI LEVEL 2 [facility] 2022-06-02 2022-06-02 (TEL) STLMLC STLMLC [id number] Co mmon 00:00:00 00:00:00 [facility] 2022-05-07 2022-05-07 OFFICE STLMLC STLMLC [id number] Co mmon 00:00:00 00:00:00 VISIT [facility] PT - CHI LEVEL 4 [facility] 2022-01-16 2022-01-16 (TEL) STLMLC STLMLC [id number] Co mmon 00:00:00 00:00:00 [facility] 2022-01-16 2022-01-16 OFFICE STLMLC STLMLC [id number] Co mmon 00:00:00 00:00:00 VISIT EST Spir it PT LEVEL 3 [facility] Results This patient has no known results.
[2022-07-29 16:35] LABS: Urine Blood 3+ (Negative); Urine Glucose Negative (Negative); Urine Protein Negative (Negative); Urine Specific Gravity >=1.030 (1.005-1.030); Urine pH 5.5 (5.0-7.0)
[2022-07-29 16:39] LABS: Absolute Lymphocytes (CBC) 2.3 K/uL (0.7-4.9); Hematocrit 36.9 % (36.0-45.0); Lymphocytes % 15.2 % (15.3-44.8); MPV 9.2 fL (7.6-11.3); RBC Red Blood Cell Count 4.61 M/uL (3.86-4.86)
[2022-07-29] MEDS ORDERED: ONDANSETRON 4 MG/2 ML VIAL ONE (16:47)
[2022-07-29] MEDS ORDERED: KETOROLAC 30 MG/ML INJ ONE (16:48)
[2022-07-29] MEDS ORDERED: NA CHLORIDE 0.9% 1,000 ML ONE (16:48)
[2022-07-29 16:53] LABS: Albumin 3.3 g/dL (3.4-5.0); Bilirubin Total 0.1 mg/dL (0.2-1.0); Potassium 3.9 mmol/L (3.5-5.1); Protein, Total 7.2 g/dL (6.4-8.2)
[2022-07-29 16:54] LABS: Urine Bacteria None Seen /HPF (<20); Urine Mucus Slight /HPF (None Seen)
--- NOTE | 2022-07-29 17:13 | RAD REPORT ---
EXAM DESCRIPTION: CT - Stone Protocol - 07/29/2022 4:51 pm CLINICAL HISTORY: left flank pain COMPARISON: <Comparisons>CT study 11/15/2021 TECHNIQUE: Axial 3 mm thick images were obtained without oral or IV contrast. The [id number] span s the entirety of the system including uppermost abdomen and lung bases. All CT scans are performed using dose optimization technique as appropriate and may include automated exposure control or mA/KV adjustment according to patient size. FINDINGS: There is severe dilatation of calices in the upper pole of left kidney with moderately sev ere dilatation of the left renal pelvis and calices of the lower left kidney. The left ureter is not dilated. Several small stone fragments are seen in the lower pole calices of the left kidney. There i s ill-defined calcifications at the left UPJ. This was a site of a large 12 millimeter stone seen on the October 2021 study. Patient may have undergone lithotripsy during the interval. The hydronephrosis is no more severe than seen on the October comparison study. There is perinephric stranding present sonu ofelia around the upper pole of the left kidney. No hydronephrosis or abnormal calcification of the r ight kidney or right collecting system. No suspicious renal masses. Isodense masses and pyelonephriti s are not excluded on a stone protocol CT scan. No significant adrenal finding. Urinary bladder is ti ghtly contracted. Uterus is absent. Bilateral ovarian cysts are present largest on the right at 3 cm. Imaged portions of the liver, spleen and pancreas show no suspicious findings on non-contrast imaging . Gallbladder is absent. No biliary tree dilatation. No stomach, small bowel or colon acute finding. Moderate stool volume present in the colon. Appendix is normal. No acute GI process identifiable. No hernia, mass or bulky lymphadenopathy noted. No free air, free fluid or inflammatory stranding. No significant bony abnormality. IMPRESSION: Patient has severe hydronephrosis of the upper pole calices left kidney with moderate se verity hydronephrosis of the left renal pelvis and lower pole calices. Severity of the hydronephrosis is similar to the October 2021 study. Small nonobstructing calculi seen in the lower pole of the left kidney with small stone fragments at the left UPJ. A 12 millimeter stone was present at the left UPJ on the October 2021 study. Lithotripsy or other intervention during the interval is unknown. Patient likely has chronic hydronephrosis. Recurrent hydronephrosis is possible. There could be stone fragments and edema at the UPJ giving the patient pain symptoms. Isodense masses and pyelonephritis are not excluded.
[2022-07-29] MEDS ORDERED: FENTANYL CITR 100 MCG/2 ML ONE (17:47)
--- NOTE | 2022-07-29 18:07 | EDPHYS ---
Physician Documentation [facility] Name: Pamela Alcala Age: 47 yrs Sex: Female : 1975 Arrival Date: 07/29/2022 Time: 15:15 Bed 18 Private MD: ED Physician Hardeep Pepe HPI: 07/29 16:10 This 47 yrs old Female presents to ER via Ambulatory with complaints of Flank Pain. cp 16:10 The patient complains of pain in the left flank. The pain radiates to the left side of cp abdomen. Onset: The symptoms/episode began/occurred today. 16:10 Associated signs and symptoms: Pertinent positives: nausea, vomiting, Pertinent cp negatives: diarrhea, fever. Severity of pain: in the emergency department the pain is unchanged despite home interventions. 16:10 Patient reports history of left side kidney stone with left stent placement times [address] Siegel. Patient reports second stent was removed last week. 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 - Social history:: Smoking status: Patient denies any tobacco usage or history of. ROS: 16:15 Constitutional: Negative for body aches, chills, fever, poor PO intake. cp 16:15 Eyes: Negative for injury, pain, redness, and discharge. cp 16:15 ENT: Negative for drainage from ear(s), ear pain, sore throat, difficulty swallowing, difficulty handling secretions. 16:15 Cardiovascular: Negative for chest pain. 16:15 Respiratory: Negative for cough, shortness of breath, wheezing. 16:15 Abdomen/GI: Positive for nausea and vomiting, Negative for diarrhea, constipation. 16:15 Back: Positive for flank pain, on the left. 16:15 Neuro: Negative for altered mental status, headache, numbness, syncope, weakness. 16:15 All other systems are negative. Exam: 16:20 Constitutional: The patient appears in no acute distress, alert, awake, cp non-diaphoretic, non-toxic, well developed, well nourished, uncomfortable. 16:20 Head/Face: Normocephalic, atraumatic. cp 16:20 Eyes: Periorbital structures: appear normal, Conjunctiva: normal, no exudate, no injection, Sclera: no appreciated abnormality, Lids and lashes: appear normal, bilaterally. 16:20 ENT: External ear(s): are unremarkable, Nose: is normal, Mouth: Lips: moist, Oral mucosa: pink and intact, moist, Posterior pharynx: Airway: no evidence of obstruction, patent. 16:20 Neck: ROM/movement: is normal, is supple, without pain, no range of motions limitations. 16:20 Chest/axilla: Inspection: normal. 16:20 Cardiovascular: Rate: normal, Rhythm: regular, Edema: is not appreciated, JVD: is not appreciated. 16:20 Respiratory: the patient does not display signs of respiratory distress, Respirations: normal, no use of accessory muscles, no retractions, labored breathing, is not present, Breath sounds: are clear throughout, no decreased breath sounds, no stridor, no wheezing. 16:20 Abdomen/GI: Inspection: abdomen appears normal, Bowel sounds: active, all quadrants, Palpation: soft, in all quadrants, moderate abdominal tenderness, in the posterior aspect of left lateral abdomen, rebound tenderness, is not appreciated. 16:20 Skin: no rash present. 16:20 Neuro: Motor: moves all fours, strength is normal, Gait: is steady, at a normal pace, without difficulty. Vital Signs: 15:25 BP 95 / 75; Pulse 89; Resp 18; Temp 98.4; Pulse Ox 100% ; Weight 81.65 kg; Height 5 ft. ll1 4 in. (162.56 cm); Pain 10/10; 15:25 Body Mass Index 30.90 (81.65 kg, 162.56 cm) ll1 MDM: 15:28 Patient medically screened. cp 17:00 Differential diagnosis: nephrolithiasis, pyelonephritis, UTI, pancreatitis, ruptured cp AAA, dissecting AAA. 17:32 Management of patient was discussed with the following: [employer] Services Librarian: DR Siegel who cp recommends pain control, place on Cipro 500 mg bid for 5 days and outpatient f/u. 18:06 Data reviewed: vital signs, nurses notes, lab test result(s), radiologic studies, CT cp scan. 18:06 Test considered but Not performed: Ultrasound of renal system. Care significantly cp affected by the following chronic conditions: Diabetes, Hypertension, kidney stones. Counseling: I had a detailed discussion with the patient and/or guardian regarding: the historical points, exam findings, and any diagnostic results supporting the discharge/admit diagnosis, lab results, radiology results, to return to the emergency department if symptoms worsen or persist or if there are any questions or concerns that arise at home. Response to treatment: the patient's symptoms have markedly improved after treatment, and as a result, I will discharge patient. 07/29 15:29 Order name: Urine Microscopic Only; Complete Time: 17:10 cp 07/29 17:11 Interpretation: Normal except: URBC 11-20; BYST Trace. cp 07/29 16:17 Order name: CBC with Diff; Complete Time: 16:52 cp 07/29 16:53 Interpretation: Normal except: WBC 15.10; HGB 11.9; MCH 25.9; RDW 15.6; LINDSEY% 75.3; LYM% cp 15.2; NEUT A 11.4. 07/29 16:17 Order name: CMP; Complete Time: 17:10 cp 07/29 17:11 Interpretation: Normal except: GLUC 107; CRE 1.09; GFR 63; A/G 0.8; ALB 3.3; BILIT 0.1; cp AST 8. 07/29 16:17 Order name: Lipase; Complete Time: 17:10 cp 07/29 16:36 Order name: Urine Dipstick-Ancillary; Complete Time: 16:45 EDMS 07/29 16:45 Interpretation: Normal except: UBLD 3+; UESTR Trace. cp 07/29 16:17 Order name: CT Stone Protocol; Complete Time: 17:16 cp 07/29 15:29 Order name: Urine Dipstick-Ancillary (obtain specimen); Complete Time: 16:38 cp 07/29 15:29 Order name: Urine Test (obtain specimen); Complete Time: 16:38 cp 07/29 16:17 Order name: IV Saline Lock; Complete Time: 16:38 cp 07/29 16:17 Order name: Labs collected and sent; Complete Time: 16:38 cp 07/29 17:34 Order name: PO challenge; Complete Time: 18:20 cp Administered Medications: 17:05 Drug: NS 0.9% 1000 ml Route: IV; Rate: 1 bolus; Site: right antecubital; ap3 18:29 Follow up: IV Status: Completed infusion ap3 17:05 Drug: TORadol - (ketorolac) 15 mg Route: IVP; Site: right antecubital; ap3 18:29 Follow up: Response: No adverse reaction; Pain is decreased ap3 17:05 Drug: Zofran (Ondansetron) 4 mg Route: IVP; Site: right antecubital; ap3 17:59 Follow up: Response: No adverse reaction ap3 17:49 Not Given (vitals not suitablee): Dilaudid (HYDROmorphone) 0.5 mg IVP once ap3 17:59 Drug: fentaNYL (PF) 25 mcg Route: IVP; Site: right antecubital; ap3 18:28 Follow up: Response: No adverse reaction; Pain is decreased ap3 18:28 Drug: Rocephin (cefTRIAXone) 1 grams Route: IV; Rate: calculated rate; Site: right ap3 antecubital; 18:28 Follow up: Response: No adverse reaction ap3 18:28 Follow up: IV Status: Completed infusion ap3 Disposition Summary: 07/29/22 18:06 Discharge Ordered Location: Home cp Problem: new cp Symptoms: have improved cp Condition: Stable cp Diagnosis - Dorsalgia, unspecified cp - Unspecified hydronephrosis - left kidney cp Followup: cp - With: Atilio Siegel MD - When: 2 - 3 days - Reason: Recheck today's complaints Discharge Instructions: - Discharge Summary Sheet cp - Flank Pain, Adult cp - Hydronephrosis cp Forms: - Medication Reconciliation Form cp - Thank You Letter cp - Antibiotic Education cp - Prescription Opioid Use cp Prescriptions: - Tylenol-Codeine #3 300 mg-30 mg Oral - take 2 tablet by ORAL route every 8 hours; 14 tablet; Refills: 0, Product cp Selection Permitted - Cipro 500 mg Oral Tablet - take 1 tablet by ORAL route every 12 hours for 5 days; 10 tablet; Refills: 0, cp Product Selection Permitted Signatures: Dispatcher [employer] EDMS Marcus Pimentel PA PA cp Prokisch, Amanda, RN RN ap3 Indra Castaneda RN RN ll1 Corrections: (The following items were deleted from the chart) 17:11 17:11 Normal except: GLUC 107; CRE 1.09; GFR 63. cp cp 17:11 17:11 Normal except: GLUC 107; CRE 1.09; GFR 63; A/G 0.8. cp cp
--- NOTE | 2022-07-29 18:07 | ER ---
Nurse's Notes [facility] Name: Pamela Alcala Age: 47 yrs Sex: Female : 1975 Arrival Date: 07/29/2022 Time: 15:15 Bed 18 Private MD: Diagnosis: Dorsalgia, unspecified;Unspecified hydronephrosis-left kidney Presentation: 07/29 15:25 Chief complaint: Patient states: Severe L flank pain started today. Just had kidney ll1 stent removed last Thursday with Dr. Siegel. No fever, + nausea. Coronavirus screen: Vaccine status: Patient reports receiving the 2nd dose of the covid vaccine. Client denies travel out of the [place] in the last 14 days. At this time, the client does not indicate any symptoms associated with coronavirus-19. Ebola Screen: Patient denies travel to an Ebola-affected area in the 21 days before illness onset. Initial Sepsis Screen: Does the patient meet any 2 criteria? No. Patient's initial sepsis screen is negative. Does the patient have a suspected source of infection? Yes: Dysuria/Frequency/Urgency/UTI. Risk Assessment: Do you want to hurt yourself or someone else? Patient reports no desire to harm self or others. Onset of symptoms was July 29, 2022. 15:25 Method Of Arrival: Ambulatory ll1 15:25 Acuity: CROW 3 ll1 Triage Assessment: 17:05 General: Appears uncomfortable, Behavior is calm, cooperative. 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 - Social history:: Smoking status: Patient denies any tobacco usage or history of. Screenin:05 [facility] ED Fall Risk Assessment (Adult) History of falling in the last 3 months, ap3 including since admission No falls in past 3 months (0 pts). Abuse screen: Denies threats or abuse. Nutritional screening: No deficits noted. Tuberculosis screening: No symptoms or risk factors identified. Assessment: 17:05 Reassessment: Patient and/or family updated on plan of care and expected duration. Pain ap3 level reassessed. Patient is alert, oriented x 3, equal unlabored respirations, skin warm/dry/pink. Pain: Complains of pain in abdomen Pain currently is 10 out of 10 on a pain scale. Vital Signs: 15:25 BP 95 / 75; Pulse 89; Resp 18; Temp 98.4; Pulse Ox 100% ; Weight 81.65 kg; Height 5 ft. ll1 4 in. (162.56 cm); Pain 10/10; 15:25 Body Mass Index 30.90 (81.65 kg, 162.56 cm) ll1 ED Course: 15:15 Patient arrived in ED. as 15:19 Marcus Pimentel PA is PHCP. cp 15:19 Hardeep Pepe MD is Attending Physician. cp 15:26 Triage completed. ll1 15:26 Arm band placed on Patient placed in an exam room, on a stretcher. ll1 16:24 Urine Microscopic Only Sent. kj1 16:24 Initial lab(s) drawn, by me, sent to lab. Inserted saline lock: 20 gauge in right kj1 antecubital area, using aseptic technique. Blood collected. 16:43 Marcela Camargo, RN is Primary Nurse. ap3 16:53 CT Stone Protocol In Process Unspecified. EDMS 17:06 Patient has correct armband on for positive identification. Bed in low position. Call ap3 light in reach. Side rails up X 1. Adult w/ patient. Pulse ox on. NIBP on. Door closed. Noise minimized. 18:05 Atilio Siegel MD is Referral Physician. cp 18:28 No provider procedures requiring assistance completed. IV discontinued, intact, ap3 bleeding controlled, No redness/swelling at site. Pressure dressing applied. Administered Medications: 17:05 Drug: NS 0.9% 1000 ml Route: IV; Rate: 1 bolus; Site: right antecubital; ap3 18:29 Follow up: IV Status: Completed infusion ap3 17:05 Drug: TORadol - (ketorolac) 15 mg Route: IVP; Site: right antecubital; ap3 18:29 Follow up: Response: No adverse reaction; Pain is decreased ap3 17:05 Drug: Zofran (Ondansetron) 4 mg Route: IVP; Site: right antecubital; ap3 17:59 Follow up: Response: No adverse reaction ap3 17:49 Not Given (vitals not suitablee): Dilaudid (HYDROmorphone) 0.5 mg IVP once ap3 17:59 Drug: fentaNYL (PF) 25 mcg Route: IVP; Site: right antecubital; ap3 18:28 Follow up: Response: No adverse reaction; Pain is decreased ap3 18:28 Drug: Rocephin (cefTRIAXone) 1 grams Route: IV; Rate: calculated rate; Site: right ap3 antecubital; 18:28 Follow up: Response: No adverse reaction ap3 18:28 Follow up: IV Status: Completed infusion ap3 Medication: 17:06 VIS not applicable for this client. ap3 Outcome: 18:06 Discharge ordered by . bettina 18:29 Discharged to home ambulatory. ap3 18:29 Condition: good 18:29 Discharge instructions given to patient, Instructed on discharge instructions, follow up and referral plans. medication usage, Demonstrated understanding of instructions, follow-up care, medications, Prescriptions given X 2. 18:29 Patient left the ED. ap3 Signatures: Dispatcher [employer] EDMS Janie Baez Corey, PA PA cp Prokisch, Amanda RN RN ap3 Nora Meyer kj1 Indra Castaneda, FELIPE RN ll1 Corrections: (The following items were deleted from the chart) 16:39 16:38 UA MICROSCOPIC+U.LAB.BRZ drawn and sent. ll1 kj1
[2022-07-29] MEDS ORDERED: CEFTRIAXONE 1000 MG/VIAL ONE (18:24)
[2022-07-29 18:54] VITALS: BP 95/75; TEMP 98.4; O2SAT 100
== END 2022-07-29 18:29 | disposition home or self-care (01) ==
LOC: ER 15:13
DX: N13.30 Unspecified hydronephrosis (principal); I10 Essential (primary) hypertension
CPT/HCPCS: 85025; 36415; 83690; 80053; 76377; 74176; J3010; J7030; J2405; 81003; 81015; 96361; 96374; 96375; 99284

== ENCOUNTER 2022-08-26 07:14 | Day surgery (SDC) | payer OTHER ==
[2022-08-19 16:50] LABS: Potassium 3.9 mmol/L (3.5-5.1)
[2022-08-26] MEDS ORDERED: AMPICILLIN SODIUM 2 GM/VIAL VIAL ONE (07:30)
[2022-08-26] MEDS ORDERED: Ringers Lactate 1,000 ML IV ONE (07:30)
[2022-08-26] MEDS ORDERED: GENTAMICIN 100 MG/100 ML BAG 0 ML IV ONE (07:31)
[2022-08-26] MEDS ORDERED: NS 0.9% VIAL 10 ML ONE (08:52)
[2022-08-26] MEDS ORDERED: LIDOCAINE 1% MPF 5 ML VIAL ONE (08:52)
[2022-08-26] MEDS ORDERED: MIDAZOLAM HCL 2 MG/2 ML INJ ONE (08:52)
[2022-08-26] MEDS ORDERED: propofoL 200 MG/20 ML VIAL IV ONE ×2 (08:52→10:59)
[2022-08-26] MEDS ORDERED: FENTANYL CITR 100 MCG/2 ML ONE (08:52)
[2022-08-26] MEDS ORDERED: Gentamicin Inj 200 MG in NA CHLORIDE 0.9% 100 ML IV ONE (09:30)
[2022-08-26] MEDS ORDERED: KETOROLAC 30 MG/ML INJ ONE (10:56)
[2022-08-26] MEDS ORDERED: dexAMETHasone 10 MG/ML VIAL ONE (10:56)
[2022-08-26] MEDS ORDERED: ONDANSETRON 4 MG/2 ML VIAL ONE ×2 (10:57→12:25)
[2022-08-26] MEDS ORDERED: Mastisol Adhesive Liq ONE (11:22)
[2022-08-26] MEDS ORDERED: HYDROCODONE/APAP 5/325 MG TAB PO PRN (11:53)
[2022-08-26] MEDS ORDERED: PHENAZOPYRIDINE 100MG TAB PO ONE ×2 (11:53→12:58)
[2022-08-26] MEDS: HYDROMORPHONE HCL 1 MG/ML INJ ONE ×2 (12:07→12:14)
[2022-08-26 12:19] VITALS: O2SAT 98
[2022-08-26] MEDS ORDERED: HYDROMORPHONE HCL 1 MG/ML INJ ONE (12:25)
--- NOTE | 2022-08-26 12:52 | RAD REPORT ---
EXAM DESCRIPTION: RAD - Urethrocystogrphy Retrograde - 08/26/2022 11:49 am FINDINGS: There were 16 KUB portable images obtained during fluoroscopic assisted retrograde uretera l gram and stent placement. No suspicious or unexpected findings. Fluoro time was 0.28 minutes. Cumulative dose was 14.7 mGy.
[2022-08-26] MEDS ORDERED: HYDROCODONE/APAP 5/325 MG TAB ONE (12:58)
[2022-08-26 14:42] VITALS: BP 108/63; TEMP 97.1
--- NOTE | 2022-08-26 17:29 | OP ---
Surgeon: GAEL CHILDS Preoperative Diagnoses: 1.Left hydronephrosis. 2.Left flank pain. 3.Recurrent left ureteral stricture disease. 4.Left nephrolithiasis with possible ureterolithiasis. Postoperative Diagnoses: 1.Left hydronephrosis. 2.Left flank pain. 3.Recurrent left ureteral stricture disease. 4.Left nephrolithiasis with possible ureterolithiasis. 5.Calcified left proximal ureteral stricture disease approximately 1 cm just distal to the UPJ. Principal Procedures: 1.Cystoscopy with left retrograde pyelography. 2.Left ureteroscopy. 3.Left tethered ureteral stent placement. Indication For Procedure: Ms. Alcala is a 47-year-old female, who initially presented for my care and evaluation in October of last 2021 with left obstructive 15 mm ureterolithiasis associated wit h hydronephrosis and flank pain. There was high-grade ureteral obstruction noted and there was diffi culty in navigating the stent beyond significant impaction of the stone within the proximal ureter. Eventually, after multiple attempts to navigate a wire around the stone including using a Glidewire a s well as a 5-Chinese ureteral access catheter, the wire finally did successfully pass beyond the ston e and into the collecting system where it coiled in the appropriate renal pelvis and upper pole calyc eal space. I was then able to upsize this by passing a 5-Chinese ureteral access catheter and amarilys kenyoncholo was only able to place a 4.8-Chinese double-J ureteral stent. The stone was successfully managed subsequently on 11/26/2021, but there was significant mucosal disruption observed in the proximal ure ter. As a result, the stent was left for a prolonged period of at least 6-8 weeks before being remov ed to try to decrease the risk of stricture disease forming, but despite this, the patient had recurr ence of the stricture disease. She subsequently underwent evaluation showing recurrence of the hydro nephrosis and underwent incision and dilation of the stricture disease using a laser on 05/27/2022. The stent was again left for a prolonged period of at least 6-8 weeks before being removed; however, a subsequent the evaluation performed in July of this year, there was recurrence of the hydronephr osis, flank pain, and obstruction immediately after the stent was removed. As a result, she was coun seled on the potential for evaluation and repeat attempt at endoscopic management versus potential ne ed for definitive pyeloplasty. Because the CT scan indicated an area of calcified material in the re gion of the obstruction, we discussed the role for ureteroscopy to verify the absence of an obstructi ng calculus prior to definitive repair in case the calculus could simply be managed endoscopically an d no further definitive reconstruction would be required. As a result, she presents today for that e valuation. Procedure In Detail: The patient was consented in the preoperative holding area before being transfe rred to the operative suite where general anesthesia was induced. She was given ampicillin 2 g and g entamicin 2-3 mg/kg IV antimicrobial prophylaxis. Pneumo boots were provided for DVT prophylaxis. S he was placed in the lithotomy position, padded and secured to the table appropriately. Her genitali a were prepped with Hibiclens and she was draped in standard fashion. The case was begun using a 22- Chinese rigid cystoscope to traverse the urethra and into the bladder with ease. The bladder was deco mpressed of fluid and some cloudy urine despite negative preoperative urine culture. The left ureter al orifice was then visualized and cannulated with a 5-Chinese ureteral access catheter with ease. A retrograde pyelogram was then performed. Left retrograde pyelography: Using a 70:30 mixture of Omnipaque and saline, contrast was injected via the lumen of the 5-Chinese ur eteral access catheter and did propagate up a non-obstructed and relatively nondilated distal into th e mid and proximal ureter where just about 2-3 cm distal to the UPJ, a point of obstruction was noted with minimal contrast emanating beyond it into dilated collecting system. As a result, I passed a S ensor wire successfully via the 5-Chinese ureteral access catheter and into the upper pole of the kidn ey where a coil was observed fluoroscopically. Over the Sensor wire, I then passed a dual-lumen cath eter after removing the 5-Chinese ureteral access catheter. I was able to navigate the dual-lumen all the way up to the point of stricture narrowing where it would no further pass. Additional injection of contrast confirmed the obstruction at that location. The level of obstruction seen was at the mi dbody of L2 and the distance of involved tissue was about 1 cm. I thus removed the dual-lumen cathet er and utilized a semi-rigid ureteroscope to navigated all the way up the ureter to the point of obst ruction, which was visualized. Pictures were taken to document for the explanation to the patient an d the family. I was able to utilize a Bentson wire via the ureteroscope to pass through the very elvin rowed strictured opening and passed the ureteroscope beyond the point of strictured opening, which wa s short and only approximately 0.5 cm in length or less, and beyond it, I was in the dilated portion of the renal pelvis/proximal ureter. I decompressed it of some cloudy urine and hydronephrotic fluid before again injecting contrast via the ureteroscope to define the extent of the stricture disease. Radiographic imaging defined the extent to be less than 1 cm in total length, about 8 mm and there w as calcification noted within the anterior-most component of the area of stricture. As a result, I r emoved the ureteroscope and passed the 22-Chinese rigid cystoscope over the safety wire passing a 6-Fr ench by 26 cm double-J ureteral stent over the wire successfully into the collecting system with a co il observed fluoroscopically in the upper pole and 1 cystoscopically formed in the bladder. The sten t was left on the tether for ease of subsequent removal. The patient's bladder was decompressed of f luid and urine, and she was then taken out of the lithotomy position. She was awakened from general anesthesia, transferred to a stretcher, and then transferred to the recovery room in good condition. Complications: None. Findings: An approximately 8 mm proximal ureteral stricture disease calcified at the left UPJ. Discharge Disposition: The patient will be discharged with the tethered ureteral stent and a prescri ption for Keflex for 7 days. I will leave it up to her whether she wishes to keep the stent or have it removed, given the pain that she experiences with the stent or without it. If she wishes to keep the stent in place, we will remove the tether of the stent from the stent in the office within a week . If she wishes the stent removed, this may be removed using the tether after 3 days, but before 7 d ays of time has elapsed. She subsequently will be counseled about the role for definitive repair of the stricture disease, which may essentiall y be done as a pyeloplasty. WR/MODL Voice ID: [id number] Report ID: [id number]
== END 2022-08-26 13:21 | disposition home or self-care (01) ==
LOC: OR 07:14
PROVIDERS: ATTEND Urology
PROC: 0T778DZ Dilation of Left Ureter with Intraluminal Device, Via Natural or Artificial Opening Endoscopic (ICD-10-PCS; principal; 2022-08-26 09:00)
DX: N13.1 Hydronephrosis with ureteral stricture, not elsewhere classified (principal); N13.30 Unspecified hydronephrosis; R10.9 Unspecified abdominal pain; N13.2 Hydronephrosis with renal and ureteral calculous obstruction
CPT/HCPCS: 87088; 87086; 80048; 36415; 74450; 51610; 52351; 52332; J2704 ×2; J2001; J1580; J2250; J3010; J1100; A4216; J1170; J7120; J2405 ×2; J0290

== ENCOUNTER 2022-08-27 20:14 | Inpatient (IN) | payer OTHER ==
[2022-08-27 20:57] LABS: Absolute Lymphocytes (CBC) 0.5 K/uL (0.7-4.9); Hematocrit 27.6 % (36.0-45.0); Lymphocytes % 5.9 % (15.3-44.8); MCV 78.6 fL (80-100); RBC Red Blood Cell Count 3.51 M/uL (3.86-4.86)
--- NOTE | 2022-08-27 20:58 | RAD REPORT ---
EXAM DESCRIPTION: RAD - Chest Single View - 08/27/2022 8:49 pm CLINICAL HISTORY: DYSPNEA Chest pain. COMPARISON: No comparisons FINDINGS: Portable technique limits examination quality. The lungs are underinflated with atelectasis suspected in the left lung base. The heart is normal in size. No displaced fractures.
--- OUTSIDE RECORDS SUMMARY | 2022-08-27 21:16 | XMS REPORT | Continuity of Care Document ---
:1975 Author Organization [facility] t Address [address] [place] [address] Care Team Providers Name Role Phone Unavailable Unavailable Unavailable Payers Payer Name Policy Type Policy Number Effective Date Expiration Date Aubrie ROY 53 [id number] 2005 [facility] - 00:00:00 [facility] Problems Condition Condition Condition Status Onset Resolution Last Treating Co mments Source Name Details Category Date Date Treatment Clinician Date [id number] Ureteral Problem Commo n stricture, [facility] left [facility] Flank pain Flank pain Problem C ommon [facility] [id number] Nephrouret Problem Co mmon erolithias [facility] is [facility] [id number] Complicate Problem Com mon d UTI [facility] (urinary - [facility] tract St infection) [facility] [id number] Hydronephr Problem Com mon osis, left [facility] [id number] Ureterolit Problem Com mon hiasis [facility] [id number] Left flank Problem Co mmon pain [facility] [id number] Kidney Problem Common stone on [facility] left side [facility] [id number] Recurrent Problem Co mmon [id number] nephrolith [facility] iasis [facility] [id number] Lower Problem Common urinary [facility] tract [facility] Hydronephr Problem C ommon osis with osis with Spir it renal and renal and - [facility] I ureteral ureteral calculous calculous [facility] obstructio obstructio Me dical n n [place] [id number] Acute UTI Problem Com [facility] Hydronephr Hydronephr Problem C ommon osis due osis due [facility] to [facility] ureteral ureteral stricture stricture [facility] Allergies, Adverse Reactions, Alerts This patient has no known allergies or adverse reactions. Social History Social Habit Start Date Stop Date Quantity Comments Source History of Tobacco Use Co mmon [facility] Sex Assigned At Com [facility] Smoking Status Start Date Stop Date Source Never Smoker Common [facility] Medications Ordered Filled Start Stop Current Ordering Indication Dosage Frequency Signature Comments Components Source Medication Medication Date Date Medication? Clinician (SIG) Name Name Promethazin Promethazin 2022- QID Promethazi e HCl 12.5 e HCl 12.5 08-06 ne HCl MG MG 00:00: 00:00 12.5 MG 00 :00 Oxybutynin Oxybutynin 2021-07- No [...] MG 00 :00 800-160 MG Rocephin Rocephin No 1g Commo n (Ceftriaxon (Ceftriaxon 6-30 S pirit e) e) 00:00: [facility] Rocephin Rocephin 2021-0 No 1g Commo n (Ceftriaxon (Ceftriaxon 6-30 S pirit e) e) 00:00: [facility] Rocephin Rocephin 2021-0 No 1g Commo n (Ceftriaxon (Ceftriaxon 6-30 S pirit e) e) 00:00: - [facility] 00 [facility] Rocephin Rocephin 2021-0 No 1g Commo n (Ceftriaxon (Ceftriaxon 6-30 S pirit e) e) 00:00: - [facility] 00 [facility] Rocephin Rocephin 2021-0 No 1g Commo n (Ceftriaxon (Ceftriaxon 6-30 S pirit e) e) 00:00: - [facility] 00 [facility] Rocephin Rocephin 2021-0 No 1g Commo n (Ceftriaxon (Ceftriaxon 6-30 S pirit e) e) 00:00: - [facility] 00 [facility] Rocephin Rocephin 2021-0 No 1g Commo n (Ceftriaxon (Ceftriaxon 6-30 S pirit e) e) 00:00: - [facility] 00 [facility] Rocephin Rocephin 2021-0 No 1g Commo n (Ceftriaxon (Ceftriaxon 6-30 S pirit e) e) 00:00: - [facility] 00 [facility] Rocephin Rocephin 2021-0 No 1g Commo n (Ceftriaxon (Ceftriaxon 6-30 S pirit e) e) 00:00: - [facility] 00 [facility] Rocephin Rocephin 2021-0 No 1g Commo n (Ceftriaxon (Ceftriaxon 6-30 S pirit e) e) 00:00: - [facility] 00 [facility] Cephalexin Cephalexin 2021-0 2022- No 1{capsu Cephalexin 500 MG 500 MG 01-16 le} 500 MG 00:00: 00:00 00 :00 Cephalexin Cephalexin 2-0 2022- No 1{capsu Cephalexin 500 MG 500 [...] Observation Time Observation Value Comments Source height 2022-07-31 14:30:00 64 [in_i] Common S [facility] - [facility] weight 2022-07-31 14:30:00 203.2 [lb_av] Common [facility] temperature 2022-07-31 14:30:00 97.7 [degF] Common S pirit [facility] bmi 2022-07-31 14:30:00 34.88 kg/m2 Common S [facility] oximetry 2022-07-31 14:30:00 99 % Common S [facility] respiratory rate 2022-07-31 14:30:00 18 /min Comm on [facility] blood pressure 2022-07-31 14:30:00 108 mm[Hg] [facility] - systolic [facility] blood pressure 2022-07-31 14:30:00 56 mm[Hg] Common [facility] - diastolic [facility] height 2022-07-23 10:15:00 64 [in_i] Common S [facility] weight 2022-07-23 10:15:00 204 [lb_av] [facility] temperature 2022-07-23 10:15:00 98 [degF] [facility] 20[facility]-07-23 10:15:00 35.01 kg/m2 [facility] oximetry 2022-07-23 10:15:00 99 % [facility] respiratory rate 2022-07-23 10:15:00 18 /min Comm on [facility] blood pressure 2022-07-23 10:15:00 119 mm[Hg] [facility] - systolic [facility] blood pressure 2022-07-23 10:15:00 63 mm[Hg] [facility] - diastolic [facility] height 2022-07-11 08:30:00 64 [in_i] Common [facility] weight 2022-07-11 08:30:00 203.8 [lb_av] Common [facility] temperature 2022-07-11 08:30:00 98.2 [degF] Common S pirit [facility] bmi 2022-07-11 08:30:00 34.98 kg/m2 Common S pirit [facility] oximetry 2022-07-11 08:30:00 99 % Common S pirit - [facility] respiratory rate 2022-07-11 08:30:00 18 /min Comm on [facility] blood pressure 2022-07-11 08:30:00 110 mm[Hg] Common [facility] - systolic [facility] blood pressure 2022-07-11 08:30:00 68 mm[Hg] [facility] - diastolic [facility] oximetry 2022-05-07 10:45:00 99 % [facility] respiratory rate 2022-05-07 10:45:00 18 /min Comm on [facility] blood pressure 2022-05-07 10:45:00 122 mm[Hg] Common [facility] - systolic [facility] blood pressure 2022-05-07 10:45:00 58 mm[Hg] Common [facility] - diastolic [facility] height 2022-05-07 10:45:00 64 [in_i] [facility] weight 2022-05-07 10:45:00 205.4 [lb_av] [facility] temperature 2022-05-07 10:45:00 98.3 [degF] [facility] bmi 2022-05-07 10:45:00 35.25 kg/m2 Common S pirit [facility] height 2022-01-16 09:30:00 64 [in_i] [facility] S pirit [facility] weight 2022-01-16 09:30:00 204.2 [lb_av] [facility] temperature 2022-01-16 09:30:00 97.5 [degF] [facility] S pirit [facility] bmi 2022-01-16 09:30:00 35.05 kg/m2 Common S pirit [facility] oximetry 2022-01-16 09:30:00 98 % Common S pirit [facility] respiratory rate 2022-01-16 09:30:00 16 /min Comm on [facility] blood pressure 2022-01-16 09:30:00 116 mm[Hg] Common [facility] - systolic [facility] blood pressure 2022-01-16 09:30:00 60 mm[Hg] Common [facility] - diastolic [facility] Procedures This patient has no known procedures. Encounters Start End Encounter Admission Attending Care Care Encounter Source Date/Time Date/Time Type Type Clinicians Facility Department ID 2022-04-24 Outpatient STLMLC STLMLC [id number] Common 15:07:03 [facility] 2022-02-20 Outpatient STLMLC STLMLC [id number] Common 13:06:03 [facility] 2022-01-16 Outpatient STLMLC STLMLC [id number] Common 08:01:01 [facility] 2022-08-06 2022-08-06 (TEL) STLMLC STLMLC [id number] Co mmon 00:00:00 00:00:00 [facility] 2022-07-31 2022-07-31 OFFICE STLMLC STLMLC [id number] Co mmon 00:00:00 00:00:00 VISIT [facility] LEVEL 4 [facility] 2022-07-30 2022-07-30 (TEL) STLMLC STLMLC [id number] Co mmon 00:00:00 00:00:00 [facility] 2022-07-23 2022-07-23 (PROC) STLMLC STLMLC [id number] Co mmon 00:00:00 00:00:00 Procedure [facility] 2022-07-11 2022-07-11 OFFICE STLMLC STLMLC [id number] Co mmon 00:00:00 00:00:00 VISIT [facility] LEVEL 2 [facility] 2022-06-02 2022-06-02 (TEL) STLMLC STLMLC [id number] Co mmon 00:00:00 00:00:00 [facility] 2022-05-07 2022-05-07 OFFICE STLMLC STLMLC [id number] Co mmon 00:00:00 00:00:00 VISIT Jose ORR PT [facility] 4 [facility] 2022-01-16 2022-01-16 OFFICE STLMLC STLMLC [id number] Co mmon 00:00:00 00:00:00 VISIT HUBERT Major it PT [facility] 3 [facility] 2022-01-16 2022-01-16 (TEL) STLMLC STLMLC [id number] Co mmon 00:00:00 00:00:00 [facility] Results This patient has no known results.
[2022-08-27 21:19] LABS: Albumin 2.8 g/dL (3.4-5.0); Bilirubin Total 0.2 mg/dL (0.2-1.0); Potassium 3.5 mmol/L (3.5-5.1); Protein, Total 6.5 g/dL (6.4-8.2)
[2022-08-27 21:20] LABS: Protime INR 1.16
[2022-08-27] MEDS ORDERED: CEFTRIAXONE 1000 MG/VIAL ONE (21:21)
[2022-08-27] MEDS ORDERED: NA CHLORIDE 0.9% 1,000 ML ONE (21:21)
[2022-08-27] MEDS ORDERED: NA CHLORIDE 0.9% 500 ML ONE (21:21)
[2022-08-27 21:59] LABS: Urine Blood 3+ (Negative); Urine Glucose Negative (Negative); Urine Protein 3+ (Negative); Urine Specific Gravity 1.015 (1.005-1.030); Urine pH 5.5 (5.0-7.0)
[2022-08-27 22:08] LABS: Magnesium 1.9 mg/dL (1.6-2.4); Troponin High Sensitivity 4.6 pg/mL (<58.9)
[2022-08-27 22:21] LABS: SARS-COV-2 RT PCR NEGATIVE (NEGATIVE)
--- NOTE | 2022-08-27 22:26 | ER ---
Nurse's Notes [facility] Name: Pamela Alcala Age: 47 yrs Sex: Female : 1975 Arrival Date: 08/27/2022 Time: 20:19 Bed 5 Private MD: Diagnosis: Pyelonephritis acute;Other hydronephrosis-left ureteral stent 08/27/22;Fever, unspecified;UTI/ Urinary tract infection, site not specified;Other injury of left kidney, initial encounter-large subcapsular hematoma Presentation: 08/27 20:27 Chief complaint: EMS states: Toned out for fever, weakness, and SOB, EMS reports pt HR ll3 in 130s, O2 92% on RA, respirations 22-30/ min, pt states she had SX yesterday on kidneys, c/o left upper quadrant pain /10 since yesterday, states fever and weakness started at 8:30 this morning. Coronavirus screen: Vaccine status: Patient reports receiving the 2nd dose of the covid vaccine. fever, shortness of breath. Ebola Screen: No symptoms or risks identified at this time. Initial Sepsis Screen: Does the patient meet any 2 criteria? RR > 20 per min. HR > 90 bpm. Yes Does the patient have a suspected source of infection? Yes: Other: Recent SX If YES to both, name of provider notified: Marcus Prado MD. Risk Assessment: Do you want to hurt yourself or someone else? Patient reports no desire to harm self or others. Onset of symptoms was August 27, 2022 at 08:30. Care prior to arrival: Medication(s) given: Normal saline infusion, 800 ml Tylenol, 1000 mg, At 1900 IV initiated. 18 GA, in the right antecubital area, Oxygen administered. via nasal cannula. 20:27 Method Of Arrival: EMS: [facility] ll3 20:27 Acuity: CROW 2 ll3 Triage Assessment: 20:30 General: Appears uncomfortable, Behavior is cooperative, anxious. General: Reports ll3 fever for 12-24 hours. Pain: Complains of pain in left upper quadrant Pain radiates to left mid back Pain currently is 7 out of 10 on a pain scale. Pain began 1 day ago. Is continuous. Neuro: Level of Consciousness is awake, alert, obeys commands, Oriented to person, place, time, situation. Respiratory: Reports shortness of breath at rest on exertion since This morning Respiratory effort is even, unlabored, Respiratory pattern is regular, symmetrical. : Reports States had SX yesterday on kidneys. Derm: Skin is pink, warm \\T\\ dry. TV HOST: 20:35 LMP N/A - Hysterectomy ll3 Historical: - Allergies: 20:35 No Known Allergies; ll3 - Home Meds: 20:35 Bupropion Oral [Active]; Metformin Oral [Active]; Metoprolol Tartrate Oral [Active]; ll3 - PMHx: 20:35 "Kidney problems"; diabetes mellitus; Hypertensive disorder; ll3 - PSHx: 20:35 2 kidney stents; Cholecystectomy; hysterectomy; ll3 - Immunization history:: Client reports receiving the 2nd dose of the Covid vaccine. - Social history:: Smoking status: Patient denies any tobacco usage or history of. - Family history:: not pertinent. Screenin/09 00:59 [facility] ED Fall Risk Assessment (Adult) History of falling in the last 3 months, ll3 including since admission No falls in past 3 months (0 pts) Confusion or Disorientation No (0 pts) Intoxicated or Sedated No (0 pts) Impaired Gait No (0 pts) Mobility Assist Device Used No (0 pt) Altered Elimination No (0 pt) Score/Fall Risk Level 0 - 2 = Low Risk Oriented to surroundings, Maintained a safe environment, Educated pt \\T\\ family on fall prevention, incl call for assistance when getting out of bed. Abuse screen: Denies threats or abuse. Denies injuries from another. Nutritional screening: No deficits noted. Tuberculosis screening: No symptoms or risk factors identified. Assessment: 08/27 20:30 General: See triage assessment. ll3 21:30 Reassessment: No changes from previously documented assessment. Patient and/or family ll3 updated on plan of care and expected duration. Pain level reassessed. Patient is alert, oriented x 3, equal unlabored respirations, skin warm/dry/pink. 23:00 Reassessment: No changes from previously documented assessment. Patient and/or family ll3 updated on plan of care and expected duration. Pain level reassessed. Patient is alert, oriented x 3, equal unlabored respirations, skin warm/dry/pink. Vital Signs: 20:27 BP 103 / 65; Pulse 116; Resp 22; Temp 100.5(O); Pulse Ox 100% on 2 lpm NC; Weight 83.91 ll3 kg (R); Height 5 ft. 2 in. (157.48 cm) (R); Pain 7/10; 21:30 BP 92 / 61; Pulse 98; Resp 21; Pulse Ox 100% ; ll3 23:36 BP 98 / 67; Pulse 95; Resp 19; Temp 99.0(O); Pulse Ox 100% on 2 lpm NC; ll3 08/28 00:43 Temp 101.7(O); ll3 01:31 BP 114 / 68; Pulse 106; Resp 18; Pulse Ox 98% on R/A; kl 08/27 20:27 Body Mass Index 33.84 (83.91 kg, 157.48 cm) ll3 ED Course: 08/27 20:19 Patient arrived in ED. ds4 20:31 Marcus Prado MD is Attending Physician. obed 20:33 Inserted saline lock: 20 gauge Blood collected. tw5 20:35 Triage completed. ll3 20:35 Arm band placed on Patient placed in an exam room, on a stretcher, on cardiac cath technician, ll3 on pulse oximetry. EKG completed in triage. Results shown to MD. 20:37 Initial lab(s) drawn, by me, sent to lab. First set of blood cultures drawn by me. tw5 20:51 Chest Single View XRAY In Process Unspecified. EDMS 21:22 COVID-19/FLU A+B Sent. bp 21:22 Magnesium Sent. bp 21:22 NT PRO-BNP Sent. bp 21:22 Troponin HS Sent. bp 21:23 Blood Culture Adult (2) Sent. bp 22:02 Urine Culture Sent. kl 22:02 COVID-19/FLU A+B Sent. kl 22:03 Blood Culture Adult (2) Sent. kl 22:03 Lactate w/ 2H reflex if indic. Sent. kl 22:21 CT Chest Abdomen Pelvis W/O Contrast In Process Unspecified. EDMS 22:23 Anitra Byers MD is Hospitalizing Provider. obed 08/28 00:59 Patient has correct armband on for positive identification. Placed in gown. Bed in low ll3 position. Call light in reach. Side rails up X 1. Adult w/ patient. Client placed on continuous cardiac and pulse oximetry monitoring. NIBP monitoring applied. 01:15 No provider procedures requiring assistance completed. Patient admitted, IV remains in ll3 place. Administered Medications: 08/27 21:22 Drug: NS 0.9% (30 ml/kg) 30 ml/kg Route: IV; Rate: bolus; Site: right antecubital; bp 21:22 Drug: Rocephin (cefTRIAXone) 1 grams Route: IV; Rate: per protocol; Site: right bp antecubital; 23:36 Follow up: Response: No adverse reaction; IV Status: Completed infusion; IV Intake: [id number] 23:04 Drug: Meropenem 1 grams Route: IV; Rate: per protocol; Site: left hand; ll3 23:36 Follow up: Response: No adverse reaction; IV Status: Completed infusion; IV Intake: ll3 100ml 08/28 00:52 Drug: Ibuprofen 800 mg Route: PO; ll3 Medication: 01:15 VIS not applicable for this client. ll3 Intake: 08/27 23:36 IV: 100ml; Total: 100ml. ll3 23:36 IV: 10ml; Total: 110ml. ll3 Outcome: 22:25 Decision to Hospitalize by Provider. obed 02 01:30 Admitted to Med/surg accompanied by tech, Report called to Carrie espinosa Condition: improved Discharge instructions given to patient, Instructed on the need for admit, Demonstrated understanding of instructions. 01:47 Patient left the ED. ll3 Signatures: Dispatcher [employer] EDMS Chelsea Castaneda RN RN kl Anderson, Corey, MD MD cha Swanson, Donovan ds4 Mandeep Jaime RN RN bp Wood, Tiffany tw5 Esther Abernathy RN RN ll3 Corrections: (The following items were deleted from the chart) 08/27 21:53 21:22 BASIC METABOLIC PANEL+C.LAB.BRZ drawn and sent. bp EDMS 21:53 21:22 HEPATIC FUNCTION+C.LAB.BRZ drawn and sent. bp EDMS 22:35 22:02 LIPASE+C.LAB.BRZ drawn and sent. EDMS 23:09 23:06 General: Appears uncomfortable, Behavior is cooperative, anxious, ll3 ll3 23:09 23:06 Pain: Complains of pain in left upper quadrant Pain radiates to left mid back ll3 Pain currently is 7 out of 10 on a pain scale. Pain began 1 day ago. Is continuous, [facility] : 23:06 Neuro: Level of Consciousness is awake, alert, obeys commands, Oriented to [facility] person, place, time, situation, [facility] : 23:06 General: Reports fever for 12-24 hours, [place] [id number] : 23:06 Respiratory: Reports shortness of breath at rest on exertion since This morning [facility] Respiratory effort is even, unlabored, Respiratory pattern is regular, symmetrical, [facility] : 23: Derm: Skin is pink, warm \\T\\ dry. [place] [id number] : 23: : Reports States had SX yesterday on kidneys [place] [id number]
--- NOTE | 2022-08-27 22:26 | EDPHYS ---
Physician Documentation [facility] Name: Pamela Alcala Age: 47 yrs Sex: Female : 1975 Arrival Date: 08/27/2022 Time: 20:19 Bed 5 Private MD: DELICIA Physician Marcus Prado HPI: 08/27 21:39 This 47 yrs old Female presents to ER via EMS with complaints of fever,left obed flank pain, stent yesterday. 21:39 The patient presents with abdominal pain in the left lower quadrant, abdominal obed distention in the lower abdomen, in the left lower quadrant. Onset: The symptoms/episode began/occurred 1 day(s) ago. The patient presents with pain that is acute, with no known mechanism of injury. The symptoms are located in the left mid back. Onset: The symptoms/episode began/occurred 2 day(s) ago. The pain radiates to the left low back and left mid back. Associated signs and symptoms: Pertinent positives: dysuria, fever, weakness. The problem was sustained from unknown cause. MANAGER REGULATORY: 20:35 LMP N/A - Hysterectomy ll3 Historical: - Allergies: 20:35 No Known Allergies; ll3 - Home Meds: 20:35 Bupropion Oral [Active]; Metformin Oral [Active]; Metoprolol Tartrate Oral [Active]; ll3 - PMHx: 20:35 "Kidney problems"; diabetes mellitus; Hypertensive disorder; ll3 - PSHx: 20:35 2 kidney stents; Cholecystectomy; hysterectomy; ll3 - Immunization history:: Client reports receiving the 2nd dose of the Covid vaccine. - Social history:: Smoking status: Patient denies any tobacco usage or history of. - Family history:: not pertinent. ROS: 21:39 Eyes: Negative for injury, pain, redness, and discharge, ENT: Negative for injury, obed pain, and discharge, Neck: Negative for injury, pain, and swelling, Cardiovascular: Negative for chest pain, palpitations, and edema, Respiratory: Negative for shortness of breath, cough, wheezing, and pleuritic chest pain, Abdomen/GI: Negative for abdominal pain, nausea, vomiting, diarrhea, and constipation, MS/Extremity: Negative for injury and deformity, Skin: Negative for injury, rash, and discoloration, Neuro: Negative for headache, weakness, numbness, tingling, and seizure, Psych: Negative for depression, anxiety, suicide ideation, homicidal ideation, and hallucinations, Allergy/Immunology: Negative for hives, rash, and allergies, Endocrine: Negative for neck swelling, polydipsia, polyuria, polyphagia, and marked weight changes, Hematologic/Lymphatic: Negative for swollen nodes, abnormal bleeding, and unusual bruising. 21:39 Constitutional: Positive for fatigue, fever. 21:39 Respiratory: Positive for cough, shortness of breath. 21:39 : Positive for flank pain, urinary frequency. Exam: 21:39 Head/Face: Normocephalic, atraumatic. Eyes: Pupils equal round and reactive to light, obed extra-ocular motions intact. Lids and lashes normal. Conjunctiva and sclera are non-icteric and not injected. Cornea within normal limits. Periorbital areas with no swelling, redness, or edema. ENT: Nares patent. No nasal discharge, no septal abnormalities noted. Tympanic membranes are normal and external auditory canals are clear. Oropharynx with no redness, swelling, or masses, exudates, or evidence of obstruction, uvula midline. Mucous membranes moist. Neck: Trachea midline, no thyromegaly or masses palpated, and no cervical lymphadenopathy. Supple, full range of motion without nuchal rigidity, or vertebral point tenderness. No Meningismus. Chest/axilla: Normal chest wall appearance and motion. Nontender with no deformity. No lesions are appreciated. Respiratory: Lungs have equal breath sounds bilaterally, clear to auscultation and percussion. No rales, rhonchi or wheezes noted. No increased work of breathing, no retractions or nasal flaring. Abdomen/GI: Soft, non-tender, with normal bowel sounds. No distension or tympany. No guarding or rebound. No evidence of tenderness throughout. Skin: Warm, dry with normal turgor. Normal color with no rashes, no lesions, and no evidence of cellulitis. MS/ Extremity: Pulses equal, no cyanosis. Neurovascular intact. Full, normal range of motion. Neuro: Awake and alert, GCS 15, oriented to person, place, time, and situation. Cranial nerves II-XII grossly intact. Motor strength 5/5 in all extremities. Sensory grossly intact. Cerebellar exam normal. Normal gait. Psych: Awake, alert, with orientation to person, place and time. Behavior, mood, and affect are within normal limits. 21:39 Cardiovascular: Rate: tachycardic, actual rate is 116 bpm, Rhythm: regular, Pulses: Pulses are 4+ in bilateral radial, brachial, femoral, popliteal, posterior tibial and and dorsalis pedis arteries.. Heart sounds: normal, Edema: is not appreciated, JVD: is not appreciated. 21:39 ECG was reviewed by the Attending Physician. Vital Signs: 20:27 BP 103 / 65; Pulse 116; Resp 22; Temp 100.5(O); Pulse Ox 100% on 2 lpm NC; Weight 83.91 ll3 kg (R); Height 5 ft. 2 in. (157.48 cm) (R); Pain 7/10; 21:30 BP 92 / 61; Pulse 98; Resp 21; Pulse Ox 100% ; ll3 23:36 BP 98 / 67; Pulse 95; Resp 19; Temp 99.0(O); Pulse Ox 100% on 2 lpm NC; ll3 08/28 00:43 Temp 101.7(O); ll3 01:31 BP 114 / 68; Pulse 106; Resp 18; Pulse Ox 98% on R/A; kl 08/27 20:27 Body Mass Index 33.84 (83.91 kg, 157.48 cm) ll3 MDM: 08/27 20:31 Patient medically screened. obed 21:45 Differential diagnosis: Hydronephrosis Obesity Peptic Ulcer Pyelonephritis Renal obed Infarction Ureterolithiasis diverticulitis, non-specific abd pain, pancreatitis. Data reviewed: vital signs, nurses notes, lab test result(s), EKG, radiologic studies, CT scan, plain films. Consideration of Admission/Observation Patient was admitted/placed on observation. Escalation of care including admission/observation considered. Test considered but Not performed: MRI: abd pain. Care significantly affected by the following chronic conditions: Diabetes, Hypertension, kidney prioblems. 08/27 20:30 Order name: Blood Culture Adult (2) bp 08/27 20:30 Order name: CBC with Diff; Complete Time: 22:08 bp 08/27 20:30 Order name: CMP; Complete Time: 23:08 bp 08/27 20:30 Order name: Lactate w/ 2H reflex if indic. bp 08/27 20:30 Order name: Protime (+inr); Complete Time: 22:08 bp 02/08 20:30 Order name: Ptt, Activated; Complete Time: 22:08 bp 08 20:33 Order name: Magnesium; Complete Time: 22:08 obed 08/27 20:33 Order name: NT PRO-BNP; Complete Time: 22:08 obed 08/27 20:33 Order name: Troponin HS; Complete Time: 22:08 obed 08/27 20:33 Order name: COVID-19/FLU A+B; Complete Time: 22:21 obed 08/27 20:33 Order name: Urine Culture [facility] 08/27 20:30 Order name: Chest Single View XRAY; Complete Time: 22:08 bp 02/08 20:30 Order name: EKG; Complete Time: 20:31 bp 0208 20:30 Order name: Accucheck; Complete Time: 21:44 bp 08 20:30 Order name: Cardiac monitoring; Complete Time: 21:44 bp 08/27 20:30 Order name: EKG - Nurse/Tech; Complete Time: 21:44 bp 08/27 20:30 Order name: IV Saline Lock - Large Bore; Complete Time: 21:44 bp 08 20:30 Order name: Labs collected and sent; Complete Time: 21:44 bp 08 20:30 Order name: O2 Per Protocol; Complete Time: 21:44 bp /08 20:30 Order name: O2 Sat Monitoring; Complete Time: 21:44 bp 02/08 21:29 Order name: CT Chest Abdomen Pelvis W/O Contrast; Complete Time: 23:08 obed 08/27 21:59 Order name: Urine Dipstick-Ancillary; Complete Time: 22:08 EDMS 08/27 22:35 Order name: Lipase; Complete Time: 23:08 EDMS 08 20:30 Order name: Vital Signs; Complete Time: 21:44 bp 08 20:33 Order name: IV Saline Lock; Complete Time: 21:22 obed 08/27 20:33 Order name: Urine Dipstick-Ancillary (obtain specimen); Complete Time: 23:53 obed EC:39 Rate is 112 beats/min. QRS [place] is Normal. [place] interval is normal. QRS interval is obed normal. QT interval is normal. No Q waves. T waves are Normal. No ST changes noted. Clinical impression: Sinus tachycardia and No evidence of ischemia. Interpreted by me. Reviewed by me. Administered Medications: 21:22 Drug: NS 0.9% (30 ml/kg) 30 ml/kg Route: IV; Rate: bolus; Site: right antecubital; bp 21:22 Drug: Rocephin (cefTRIAXone) 1 grams Route: IV; Rate: per protocol; Site: right bp antecubital; 23:36 Follow up: Response: No adverse reaction; IV Status: Completed infusion; IV Intake: [id number] 23:04 Drug: Meropenem 1 grams Route: IV; Rate: per protocol; Site: left hand; ll3 23:36 Follow up: Response: No adverse reaction; IV Status: Completed infusion; IV Intake: ll3 100ml 08/28 00:52 Drug: Ibuprofen 800 mg Route: PO; ll3 Disposition Summary: 08/27/22 22:25 Hospitalization Ordered Hospitalization Status: Inpatient Admission obed Provider: Anitra Byers cha [facility] Condition: Fair obed Problem: new obed Symptoms: have improved obed Bed/Room Type: Standard obed Room Assignment: 210(08/28/22 00:52) Diagnosis - Pyelonephritis acute obed - Other hydronephrosis - left ureteral stent 08/27/22 obed - Fever, unspecified obed - UTI/ Urinary tract infection, site not specified obed - Other injury of left kidney, initial encounter - large subcapsular hematoma obed Forms: - Medication Reconciliation Form oebd - SBAR form obed Signatures: Dispatcher [employer] EDMarcus Be MD MD cha Garcia, Cindy RN RN Mandeep Jaime RN RN bp Loubet, Lynsea, RN RN ll3 Randi Kovacs PA-C PAHaider sb4 Corrections: (The following items were deleted from the chart) 08/27 21:53 20:34 BASIC METABOLIC PANEL+C.LAB.BRZ ordered. EDMS EDMS 21:53 20:34 HEPATIC FUNCTION+C.LAB.BRZ ordered. EDMS EDMS 22:35 21:39 LIPASE+C.LAB.BRZ ordered. EDMS EDMS 08/28 00:52 08/27 22:25 obed cg
--- NOTE | 2022-08-27 22:31 | RAD REPORT ---
EXAM DESCRIPTION: CT - Chest Abd Pelvis Wo Con - 08/27/2022 10:19 pm CLINICAL HISTORY: Chest and abdomen pain. Cough COMPARISON: Chest Single View dated 08/27/2022; Stone Protocol dated 07/29/2022 TECHNIQUE: A limited noncontrast study was performed. All CT scans are performed using dose optimization technique as appropriate and may include automated exposure control or mA/KV adjustment according to patient size. FINDINGS: Bibasilar atelectasis is present in both posterior lung bases, greater on the left.No pleu ral or pericardial effusion.No intrathoracic adenopathy. The liver, spleen, pancreas, adrenal glands right kidney are within normal limits. Cholecystectomy cl ips. A left double-J stent has been placed with proximal aspect in the left renal pelvis and distal aspect in the urinary bladder. The left kidney appears enlarged and peripherally hyperdense with mild surro unding perinephric fat stranding. Tiny calculi suspected inferior calyx left kidney. No bowel obstruction, free air, or abscess. Mild pelvic free fluid. Normal appendix. No pathologic l ymphadenopathy in the abdomen or pelvis. No worrisome osseous finding. IMPRESSION: Enlarged and hyperdense appearance to the left kidney is present likely related to moder ate to large subcapsular hematoma. Left double-J stent is in place. No significant hydronephrosis. Tiny calculi are present inferior calyx left kidney. Bibasilar atelectasis is noted, greater on the left.
[2022-08-27] MEDS ORDERED: Meropenem 1000 MG/VIAL IV ONE (22:37)
[2022-08-27] MEDS ORDERED: NA CHLORIDE 0.9% 100 ML ONE (22:37)
--- NOTE | 2022-08-27 23:13 | P.HP ---
Certification for Inpatient Patient admitted to: Inpatient With expected LOS: >2 Midnights Patient will require the following post-hospital care: None Practitioner: I am a practitioner with admitting privileges, knowledge of patient current condition, hospital course, and medical plan of care. Services: Services provided to patient in accordance with Admission requirements found in Title 42 Section 412.3 of the Code of Federal Regulations Patient History Date of Service: 08/28/22 Reason for admission: Pyelonephritis History of Present Illness: Patient is a 47 year old female with past medical history of left ureteral stricture disease, hypertension, anemia, and non-insulin dependent type 2 diabetes who presented to the emergency department via EMS with complaints of shortness of breath, fever, weakness, and flank pain. She was noted to be tachycardic, tachypneic, and febrile upon arrival to ED. Patient had left tethered ureteral stent placed by Dr. Siegel yesterday. Urine today is positive for 3+ blood, 2+ LE, and 3+ protein. CT showed "Enlarged and hyperdense appearance to the left kidney is present likely related to moderate to large subcapsular hematoma. Left double-J stent is in place. No significant hydronephrosis. Tiny calculi are present inferior calyx left kidney." WBC and lactate within normal limits. Dr. Siegel was contacted and wishes for patient to be admitted with antibiotics and will see patient in morning. She was given IV fluids, rocephin, and meropenem in the emergency department. Patient is admitted for further management. Allergies No Known Allergies Allergy (Verified 08/19/22 16:01) Home medications list reviewed: Yes Home Medications: Metformin HCl [Glucophage*] 500 mg PO BIDWM 11/22/21 Metoprolol Tartrate [Lopressor*] 25 mg PO BEDTIME 11/22/21 Levofloxacin [Levaquin] 500 mg PO DAILY 08/28/22 - Past Medical/Surgical History Diabetic: Yes -: Type 2 Diabetes, Non-Insulin Dependent -: Hypertension -: Recurrent left ureteral stricture disease -: Left tethered ureteral stent placement -: Cholecystectomy -: Hysterectomy Psychosocial/ Personal History: Patient is . - Family History Family History: Reviewed- Non-Contributory - Family History Father -: Other (see notes) Notes: suicide Mother -: Lung disease Notes: COPD - Social History Smoking Status: Never smoker Alcohol use: Yes CD- Drugs: No Caffeine use: Yes Place of Residence: Home Review of Systems General: Fever, Sweats, Weakness Respiratory: Shortness of Breath Gastrointestinal: Abdominal Pain Genitourinary: Dysuria, Other (Flank Pain) Physical Examination - Vital Signs Temperature: 100.5 F Blood Pressure: 103/65 Pulse: 116 Respirations: 22 Pulse Ox (%): 100 - Physical Exam General: Alert, In no apparent distress HEENT: Atraumatic, EOMI, Sclerae nonicteric Neck: Supple, 2+ carotid pulse no bruit Respiratory: Clear to auscultation bilaterally, Normal air movement Cardiovascular: Irregular heart rate/rhythm (Tachycardic) Gastrointestinal: Normal bowel sounds, No tenderness Musculoskeletal: No tenderness Integumentary: No rashes Neurological: Normal gait, Normal speech, Normal affect - Studies Laboratory Data (last 24 hrs) 08/27/22 21:39: Lipase Cancelled 08/27/22 20:25: Sodium Cancelled, Potassium Cancelled, BUN Cancelled, Creatinine Cancelled, Glucose Cancelled, Magnesium 1.9, Total Bilirubin Cancelled, AST Cancelled, ALT Cancelled, Alkaline Phosphatase Cancelled 08/27/22 20:25: PT 12.8 H, INR 1.16, APTT 25.2 08/27/22 20:25: Sodium 137, Potassium 3.5, BUN 17, Creatinine 0.97, Glucose 111 H, Total Bilirubin 0.2, AST 20, ALT 25, Alkaline Phosphatase 90, Lipase 65 L 08/27/22 20:25: WBC 7.90, Hgb 9.2 L, Hct 27.6 L, Plt Count 226 Assessment and Plan - Problems (Diagnosis) (1) Sepsis Current Visit: Yes Status: Acute Qualifiers: Sepsis type: sepsis due to unspecified organism Sepsis acute organ dysfunction status: without acute organ dysfunction Qualified Code(s): A41.9 - Sepsis, unspecified organism (2) Pyelonephritis Current Visit: Yes Status: Acute (3) Hydronephrosis, left Current Visit: Yes Status: Chronic (4) Ureteral stricture, left Current Visit: Yes Status: Chronic (5) Hypertension Current Visit: Yes Status: Chronic Qualifiers: Hypertension type: primary hypertension Qualified Code(s): I10 - Essential (primary) hypertension (6) Type 2 diabetes mellitus Current Visit: Yes Status: Chronic Qualifiers: 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 Sepsis criteria met. Continue meropenem. Blood and urine cultures obtained. Renal US ordered. Dr. Siegel to see patient. NPO at midnight. Continue IV hydration. ACHS accu checks with mild sliding scale. Pain control and antiemetics as needed. Monitor and replete electrolytes per protocol. Reconcile and continue home medications. Discharge Plan: Home Plan to discharge in: Greater than 2 days - Advance Directives Does patient have a Living Will: No Does patient have a Durable POA for Healthcare: No - Code Status/Comfort Care Code Status Assessed: Yes Code Status: Full Code Physician Review: Patient Assessed, Agree with Above Assessment and Plan Critical Care: No Time Spent Managing Pts Care (In Minutes): 50
[2022-08-28] MEDS ORDERED: IBUPROFEN 400 MG TAB ONE (00:50)
[2022-08-28] MEDS ORDERED: ONDANSETRON 4 MG/2 ML VIAL IV PRN (01:47)
[2022-08-28] MEDS ORDERED: MORPHINE 4 MG/ML SYR IV PRN (01:47)
[2022-08-28] MEDS ORDERED: ACETAMINOPHEN 500 MG TAB PO PRN (01:47)
[2022-08-28] MEDS: INSULIN -REGULAR HUMAN 50 UNIT/0.5 ML ML SQ SCH ×5 (01:47→23:58)
[2022-08-28 01:58] VITALS: BMI 38.0
[2022-08-28] MEDS: NA CHLORIDE 0.9% 1,000 ML IV SCH ×5 (02:19→23:33)
[2022-08-28 04:36] LABS: Absolute Lymphocytes (CBC) 0.5 K/uL (0.7-4.9); Lymphocytes % 10.1 % (15.3-44.8); MCV 78.7 fL (80-100); MPV 8.9 fL (7.6-11.3); RBC Red Blood Cell Count 3.17 M/uL (3.86-4.86)
[2022-08-28 04:49] LABS: Phosphorus 2.5 mg/dL (2.5-4.9); Potassium 3.4 mmol/L (3.5-5.1)
[2022-08-28] MEDS: KCL 20 MEQ/100 mL IVPB 20 MEQ/100 ML BAG IV SCH ×2 (06:37→09:00)
--- NOTE | 2022-08-28 07:54 | EKG ---
Test Date: 2022-08-27 Test Time: 20:28:58 Electronics Maintenance Technician: SHAW MEASUREMENT RESULTS: Intervals: Rate: 112 NE: 160 QRSD: 108 QT: 342 QTc: 466 [place]: P: 54 NE: 160 QRS: 14 T: 58 INTERPRETIVE STATEMENTS: Sinus tachycardia Otherwise normal ECG Compared to ECG 05/23/2022 14:41:56 Sinus rhythm no longer present Electronically Signed On 08-28-22 07:53:58 CREATIVE ART DIRECTOR by Pawan Pratt
[2022-08-28] MEDS ORDERED: NALOXONE 0.4 MG/ML VIAL IV PRN (07:59)
[2022-08-28] MEDS ORDERED: HYDROMORPHONE/PCA 10 MG/50 ML SYR IV PRN (07:59)
[2022-08-28] MEDS: Meropenem 1,000 MG in NA CHLORIDE 0.9% 100 ML IV SCH ×2 (08:00→17:04)
--- NOTE | 2022-08-28 08:08 | P.CNS ---
Date of Consult: 08/28/22 Reason for Consult: LUQ pain and suspected sepsis Chief Complaint: Pyelonephritis History of Present Illness: 47-year-old female well-known to me with history of nephroureterolithiasis and impacted very large proximal ureteral calculus status post ureteroscopy with laser lithotripsy and stent placement with development of ureteral stricture disease proximally in the region of prior calculus impaction. Attempts at endoscopic management have been performed, but the stricture disease is calcified and continue to recur. As a result, during the most recent endoscopic intervention where uncomplicated ureteroscopy identified the presence of calcified component of the stricture disease which was only 0.8 cm in length in the proximal ureter, cloudy and purulent appearing urine within the kidney beyond the stricture was identified. This urine was aspirated to try to decrease the risk of translocation and development of pyelonephritis/sepsis, but despite this and the perioperative antimicrobials provided, the patient became febrile to 101.5 and tachycardic as well as tachypneic suspected for sepsis, and presented via the emergency department for admission. CT imaging was reviewed in detail and performed of the chest abdomen and pelvis without contrast. While the radiologist suspected subcapsular hematoma, I did not appreciate typical appearance for that finding. Instead, the kidney had more of a patchy heterogeneous appearance and was enlarged, potentially consistent with a bad pyelonephritis. The ureteral stent was in good position and the bladder was nearly empty. Patient seen and examined, and she was feeling better this morning. She noted she was short of breath likely because of pain that she was feeling in the left upper quadrant underneath the diaphragm. Examination: Alert, awake, oriented x3 in no acute distress No dyspnea or sign of respiratory distress Relaxing in the hospital bed more comfortable appearing Laboratory results reviewed Recommendation: -We need to characterize the left renal unit and define if significant subcapsular hematoma is indeed present, which may require percutaneous drainage to prevent subsequent organized hematoma and development of a page kidney. -CT angiogram with delayed phase scan of the abdomen requested to assess that this morning -Dilaudid SAP BASIS provided for better control of her pain -IV fluids increased to 150 cc/h -Urine culture sent from my office yesterday morning prior to initiation of the Levaquin antimicrobial as an outpatient orally. We will follow-up this result anticipated within the next 3 days hopefully. -Continue IV antimicrobial prophylaxis as appropriate Allergies No Known Allergies Allergy (Verified 08/19/22 16:01) Home Medications: Metformin HCl [Glucophage*] 500 mg PO BIDWM 11/22/21 Metoprolol Tartrate [Lopressor*] 25 mg PO BEDTIME 11/22/21 Levofloxacin [Levaquin] 500 mg PO DAILY 08/28/22 - Past Medical/Surgical History Diabetic: Yes -: Type 2 Diabetes, Non-Insulin Dependent -: Hypertension -: Recurrent left ureteral stricture disease -: Left tethered ureteral stent placement -: Cholecystectomy -: Hysterectomy Psychosocial/ Personal History: Patient is . - Family History Father Medical History: Other (see notes) Notes: suicide Mother Medical History: Lung disease Notes: COPD - Social History Alcohol use: Yes CD- Drugs: No Caffeine use: Yes Place of Residence: Home Physical Examination Temp Pulse Resp BP Pulse Ox 98.9 F 95 H 20 107/53 L 95 08/28/22 04:00 08/28/22 04:00 08/28/22 04:00 08/28/22 04:00 08/28/22 04:00 General: Alert, In no apparent distress, Oriented x3 HEENT: Atraumatic Respiratory: Normal air movement Neurological: Normal speech Laboratory Data (last 24 hrs) 08/27/22 21:39: Lipase Cancelled 08/27/22 20:25: Sodium Cancelled, Potassium Cancelled, BUN Cancelled, Creatinine Cancelled, Glucose Cancelled, Magnesium 1.9, Total Bilirubin Cancelled, AST Cancelled, ALT Cancelled, Alkaline Phosphatase Cancelled 08/27/22 20:25: PT 12.8 H, INR 1.16, APTT 25.2 08/27/22 20:25: Sodium 137, Potassium 3.5, BUN 17, Creatinine 0.97, Glucose 111 H, Total Bilirubin 0.2, AST 20, ALT 25, Alkaline Phosphatase 90, Lipase 65 L 08/27/22 20:25: WBC 7.90, Hgb 9.2 L, Hct 27.6 L, Plt Count 226 Conclusions/Impression: see HPI. Dx: Pyelonephritis, SIRS, left proximal ureteral stricture, left ureteral stent
--- NOTE | 2022-08-28 09:27 | RAD REPORT ---
EXAM DESCRIPTION: US - Renal Ultrasound-Complete - 08/28/2022 3:20 am CLINICAL HISTORY: subcapsular hematoma COMPARISON: Stone Protocol dated 07/29/2022; Abdomen Angio dated 08/28/2022; Chest Abd Pelvis Wo Con da b[place] 08/27/2022 TECHNIQUE: Grayscale and color flow images of the kidneys and bladder were obtained by a licensed m edical sonography. FINDINGS: Asymmetrically enlarged left kidney, measuring 11.7 x 7.0 x 5.1 centimeter. Right kidney m easures 11.6 x 5.1 x 4.5 centimeter. Asymmetric of the bulky appearance of the left upper to mid renal aspect. Heterogeneous hyperechoic c omponents throughout the left renal parenchyma with loss of corticomedullary differentiation. The jeanne earance may relate to components of subcapsular hematoma, as noted on the most recent CT, although no discrete measurable liquefied hematoma component is visible. Bilaterally, there is mild prominence of the renal pelvis, without kelsey hydronephrosis or caliceal d ilation. Small calculi are seen near the left renal pelvis, the largest measuring up to 6 millimeters. An lester gated 8 millimeters structure could represent other calculi versus a component of the left ureteral s tent, otherwise not well-visualized. The urinary bladder is suboptimally distended without gross abnormality seen. IMPRESSION: Heterogeneous parenchymal appearance of the enlarged left kidney, may reflect ill-define d subcapsular hematoma components in the recent postsurgical setting, although no measurable hematoma component is identified. Short-term follow-up ultrasound in 1-2 months is recommended to ensure appr opriate resolution. Residual small calculi near the left renal pelvis, as above.
--- NOTE | 2022-08-28 09:59 | RAD REPORT ---
EXAM DESCRIPTION: CT - Abdomen Angio - 08/28/2022 8:48 am CLINICAL HISTORY: Rule out urine leak. Assess subcapsular hematoma. COMPARISON: Abdominal ultrasound 08/28/[address] chest, abdomen, and pelvis, 08/27/2022. TECHNIQUE: Multiphasic CT imaging of the abdomen was performed following oral and 100 mL of Isovue 3 70 IV contrast, including arterial, portal venous, and delayed phases. Multiplanar reformats were gen erated and reviewed. . All CT scans are performed using dose optimization technique as appropriate and may include automated exposure control or mA/KV adjustment according to patient size. FINDINGS: Streaky atelectatic changes at the lung bases. The liver, spleen, and pancreas show no suspicious findings. Patient is status post cholecystectomy. No common bile duct dilation. The right kidney is unremarkable, without hydronephrosis, suspicious masses, or calculi. No perinephr ic fat stranding. A left ureteral stent is in satisfactory position along its visualized proximal aspect. Large left subcapsular hematoma is again seen, demonstrating internal heterogeneity, measuring up to 5 centimeter in thickness at the level of the upper renal pole. Internally, the hematoma demonstrates mildly increased density, ranging between 38-50 Hounsfield units, suggestive of blood products, with out significant interval increase in CT density on the delayed phase to suggest a urine leak. Deformi ty along the left superior calyx, delayed coronal images 38 and 37, may relate to ongoing extrinsic c ompression. Small volume of blood products tracks along the perinephric space and lower left retroper itoneum. No dilated bowel loops or bowel wall thickening. No free air, free fluid or inflammatory stranding. N o hernia, mass or bulky lymphadenopathy. The urinary bladder is without significant finding. No suspicious bony findings. IMPRESSION: Large left renal subcapsular hematoma without evidence of contrast extravasation to sugg est a urine leak. The hematoma results in extrinsic compression upon the renal parenchyma, with deformity of the left u pper calyx. The visualized aspect of the left ureteral stent in satisfactory position. Status post cholecystectomy.
[2022-08-28 23:19] VITALS: O2SAT 99
[2022-08-29] MEDS: Meropenem 1,000 MG in NA CHLORIDE 0.9% 100 ML IV SCH ×2 (00:10→10:00)
[2022-08-29 03:45] LABS: Absolute Lymphocytes (CBC) 1.1 K/uL (0.7-4.9); Hematocrit 26.6 % (36.0-45.0); Lymphocytes % 15.4 % (15.3-44.8); MCV 79.6 fL (80-100); MPV 8.8 fL (7.6-11.3); RBC Red Blood Cell Count 3.34 M/uL (3.86-4.86)
[2022-08-29 03:51] LABS: Potassium 3.7 mmol/L (3.5-5.1)
[2022-08-29] MEDS: NA CHLORIDE 0.9% 1,000 ML IV SCH (05:26)
[2022-08-29] MEDS: INSULIN -REGULAR HUMAN 50 UNIT/0.5 ML ML SQ SCH ×2 (06:00→12:00)
--- NOTE | 2022-08-29 06:10 | P.PN ---
Subjective Date of Service: 08/28/22 appreciate Urology assistance in getting patient transfer. Possible transfer tonight or in the morning. Patient with subcapsular hematoma. Will need CT- guided drainage. Review of Systems 10-point ROS is otherwise unremarkable Physical Examination - Vital Signs Temperature: 98.8 F Blood Pressure: 101/59 Pulse: 99 Respirations: 18 Pulse Ox (%): 95 - Physical Exam General: Alert, In no apparent distress HEENT: Atraumatic, PERRLA, EOMI Neck: Supple, JVD not distended Respiratory: Clear to auscultation bilaterally, Normal air movement Cardiovascular: Regular rate/rhythm, Normal S1 S2 Gastrointestinal: Normal bowel sounds, No tenderness Musculoskeletal: No tenderness Integumentary: No rashes Neurological: Normal speech, Normal tone, Normal affect Lymphatics: No axilla or inguinal lymphadenopathy - Studies Medications List Reviewed: Yes Assessment & Plan - Problems (Diagnosis) (1) Hematoma of left kidney Current Visit: Yes Status: Acute (2) Type 2 diabetes mellitus Current Visit: Yes Status: Chronic Qualifiers: Diabetes mellitus chcf insulin use: without watermelon inspector use Diabetes mellitus complication status: with hyperglycemia Qualified Code(s): E11.65 - Type 2 diabetes mellitus with hyperglycemia - Plan Plan: 1. Transfer to [facility] to have interventional radiology drain the hematoma. Will accept the patient back to our facility afterwards. 2. Strict blood pressure and blood sugar control 3. monitor labs and hemodynamics closely 4. Gi DVT prophylaxis Discharge Plan: Home Plan to discharge in: Greater than 2 days - Advance Directives Does patient have a Living Will: No Does patient have a Durable POA for Healthcare: No - Code Status/Comfort Care Code Status: Full Code Physician Review: Patient Assessed, Agree with Above Assessment and Plan Critical Care: No Time Spent Managing PTS Care (In Minutes): 35
[2022-08-29] MEDS ORDERED: KCL 20 MEQ/100 mL IVPB 20 MEQ/100 ML BAG IV SCH (07:30)
[2022-08-29] MEDS ORDERED: NA CHLORIDE 0.9% 100 ML ONE (09:59)
[2022-08-29] MEDS ORDERED: Meropenem 1000 MG/VIAL IV ONE (10:00)
[2022-08-29 10:51] LABS: Protime INR 1.08
[2022-08-29] MEDS ORDERED: NA CHLORIDE 0.9% 250 ML ONE (11:17)
[2022-08-29] MEDS ORDERED: D5 0.9 NS 1,000 ML IV SCH (12:00)
[2022-08-29 12:16] VITALS: BP 129/63; TEMP 100.1
== END 2022-08-29 13:34 | disposition short-term general hospital (02) | DRG 872 ==
LOC: ER 20:14 → ERHOLD 23:07 → 2ND 08-28 01:35
PROVIDERS: ADMIT Hospitalist; ATTEND Hospitalist
DX: A41.9 Sepsis, unspecified organism (principal); N13.6 Pyonephrosis; S37.012A Minor contusion of left kidney, initial encounter; E11.65 Type 2 diabetes mellitus with hyperglycemia; I10 Essential (primary) hypertension; D64.9 Anemia, unspecified; Z90.49 Acquired absence of other specified parts of digestive tract; Z79.84 Long term (current) use of oral hypoglycemic drugs; Z79.899 Other long term (current) drug therapy; Z90.710 Acquired absence of both cervix and uterus; Z20.822 Contact with and (suspected) exposure to COVID-19
CPT/HCPCS: 0240U; 36415; 71045; 71250; 74175; 74176; 76770; 80048; 80053; 81003; 82947; 83605; 83690; 83735; 83880; 84100; 84484; 85025; 85610; 85730; 87040; 87086; 87088; 93005; 99285; J1170; J2185; J3480; J7030; J7040; J7042; J7050; Q9967

== ENCOUNTER 2022-09-02 09:30 | Day surgery (SDC) | payer OTHER ==
[2022-09-02 11:10] VITALS: BP 108/67; TEMP 98.3; O2SAT 98
--- NOTE | 2022-09-03 19:20 | P.PN ---
Date of Service: 09/02/22 47-year-old G3, P3 vaginal deliveries woman with anxiety disorder and polycystic ovarian syndrome first-time stone former with 15 mm left proximal ureteral calculus status post left ureteral stent placement 11/15/2021 with complicated E. coli UTI on Vantin x10 days with improved but ongoing left flank pain s/p URS + laser lithotripsy 11/26/21 with proximal left ureteral stricture noted from impacted calculus now with mild left hydronephrosis s/p left ureteroscopy, incision and dilation of ureteral stricture disease, and ureteral stent placement 05/27/2022, stent extracted 07/23/2022 with acute flank pain and hydronephrosis with calcification seen at the level of prior treated stricture disease, body of L4, potentially consistent with rapid recurrence of a calcified stricture versus stone related obstruction associated with residual lower pole left nephrolithiasis. She has a history of a laparoscopic hysterectomy and cholecystectomy laparoscopic as well. 08/26/22 s/p left ureteroscopy with renal aspiration and stent placement, complicated by post-op febrile state and development of subcapsular hematoma. She was admitted on the evening of 08/27/2022, and I repeated the CT scan, this time with arterial phase imaging and delayed phase imaging to rule out urinary leak and active arterial extravasation. Neither was seen, and by noon 08/28/22, we had begun the process of requesting transfer for IR placement of a percutaneous tube into the subcapsular hematoma to drain it. Unfortunately, we were unable to achieve transfer due to lack of bed availability on 08/28/2022, and after multiple calls and efforts made by me personally to IR physicians both at [facility] and [place], transfer was finally achieved on 08/29/2022, and the interventional radiologist placed a percutaneous 8 [place] Zealander drain into the subcapsular collection draining over 30 cc of dark bloody fluid. She was initially having the tube flushed per their orders, but this was stopped the next day by the urology team rounding with Dr. Ryder Chapman.Cultures taken failed to grow any organism, given the patient was on perioperative antimicrobials, and she was finally discharged on Thursday09/01/22. She presents today after discharge from [facility] in the [facility]. She indicated that there was minimal drain output over the last 24 hours with less than 5 cc obtained. She was having no pain or discomfort. Examination: Patient comfortable and well-appearing in no acute distress She was alert, awake, and oriented x3 There was no dyspnea or sign of respiratory distress The ALMA ROSA bulb was attached to an 8 [place] loop nephrostomy drain centered within a subcapsular hematoma on the left. I used 10 cc of preservative-free normal saline after cleansing the Luer-Jacobo port of the drain with alcohol, to flush the drain gently initially with only 2 to 3 cc of preservative-free normal saline before aspirating back bloody fluid, injecting an additional 5 cc and aspirating back, before injecting a full 10 cc and aspirating back the bloody fluid associated. I then flushed the ALMA ROSA bulb tubing and connected it back to self suction of the drain. The patient tolerated the procedure well and without complications. She was discharged home in good condition.
== END 2022-09-02 12:02 | disposition home or self-care (01) ==
LOC: DS 09:30
PROVIDERS: ATTEND Urology
DX: Z46.6 Encounter for fitting and adjustment of urinary device (principal); M79.81 Nontraumatic hematoma of soft tissue; Z98.890 Other specified postprocedural states

== ENCOUNTER → 2023-08-05 | Emergency (ER) | payer OTHER ==
[2023-08-05 10:23] LABS: Specific Gravity 1.011 (1.005-1.030); Urine Bacteria <20 /HPF (<20); Urine Bilirubin NEGATIVE (Negative); Urine Blood 1+ (Negative); Urine Clarity Turbid (Clear); Urine Color Colorless (Yellow); Urine Glucose NEGATIVE (Negative); Urine Protein NEGATIVE (Negative); Urine Urobilinogen Normal (Normal)
[2023-08-05 10:25] LABS: Absolute Lymphocytes (CBC) 1.8 K/uL (0.7-4.9); Hematocrit 38.6 % (36.0-45.0); Lymphocytes % 21.5 % (15.3-44.8); MCV 86.8 fL (80-100); MPV 9.3 fL (7.6-11.3); Platelets 257 thou/uL (152-406); RBC Red Blood Cell Count 4.45 M/uL (3.86-4.86)
[2023-08-05 10:40] LABS: Bilirubin Total 0.2 mg/dL (0.2-1.0); Potassium 3.8 mEq/L (3.5-5.1); Protein, Total 6.8 g/dL (6.4-8.2)
--- NOTE | 2023-08-05 11:08 | RAD REPORT ---
EXAM DESCRIPTION: CT - Abdomen Pelvis W Contrast - 08/05/2023 10:51 am CLINICAL HISTORY: RLQ abd pain COMPARISON: Abdomen Pelvis W Contrast dated 11/15/2021; Kidney Imag W/Flow F W dated 06/17/2023 TECHNIQUE: Thin cut axial CT imaging of the abdomen and pelvis was performed following intravenous a dministration of 100 mL Isovue 300. Multiplanar reformats were generated and reviewed. All CT scans are performed using dose optimization technique as appropriate and may include automated exposure control or mA/KV adjustment according to patient size. FINDINGS: No suspicious findings in the lung bases. The liver, spleen, adrenal glands, and pancreas show no suspicious findings. Status post cholecystect estiven. Atrophic changes of the left kidney following resolution of hydronephrosis seen on the comparison CT. Nonobstructing 3-4 mm lower pole calculi. Some of these radiodensities may relate to parenchymal danielle cifications. Mild ectasia of the left upper calyx is seen. No hydronephrosis or radiopaque calculi of the right kidney. No suspicious renal masses. No dilated bowel loops or bowel wall thickening. No free air, free fluid or inflammatory stranding. N o hernia, mass or bulky lymphadenopathy. The urinary bladder is suboptimally distended, without signi ficant finding. No suspicious bony findings. IMPRESSION: No acute intra-abdominal process. Atrophic changes of the left kidney following resolution of hydronephrosis, with few nonobstructing l eft lower pole 3-4 mm calculi.
--- NOTE | 2023-08-05 12:27 | ER ---
[facility] Name: Pamela Alcala Age: 48 yrs Sex: Female : 1975 Arrival Date: 08/05/2023 Time: 09:45 Bed 8 Private MD: Diagnosis: Abdominal pain, unspecified Presentation: 08/05 09:58 Chief complaint: Patient states: Abdominal and back pain started at 0400 AM. ll1 Coronavirus screen: Client denies travel out of the [place] in the last 14 days. At this time, the client does not indicate any symptoms associated with coronavirus-19. Ebola Screen: Patient denies travel to an Ebola-affected area in the 21 days before illness onset. Initial Sepsis Screen: Does the patient meet any 2 criteria? No. Patient's initial sepsis screen is negative. Does the patient have a suspected source of infection? Yes: Acute abdominal pain. Risk Assessment: Do you want to hurt yourself or someone else? Patient reports no desire to harm self or others. Onset of symptoms was August 05, 2023. 09:58 Method Of Arrival: Ambulatory [facility] 09:58 Acuity: CROW 3 ll1 Triage Assessment: 10:05 General: Appears in no apparent distress. Behavior is calm, cooperative. Pain: ap3 Complains of pain in right upper quadrant and right lower quadrant Pain currently is 5 out of 10 on a pain scale. at worst was 10 out of 10 on a pain scale. Neuro: Level of Consciousness is awake, alert, obeys commands, Oriented to person, place, time, situation. Cardiovascular: Patient's skin is warm and dry. Respiratory: Airway is patent Respiratory effort is even, unlabored, Respiratory pattern is regular, symmetrical. GI: Reports lower abdominal pain, upper abdominal pain. KEY WORKER: 10:05 LMP N/A - Hysterectomy, Not ap3 Historical: - Allergies: :58 No Known Allergies; ll1 - PMHx: :58 diabetes mellitus; Hypertensive disorder; ll1 - PSHx: :58 2 kidney stents; Cholecystectomy; hysterectomy; ll1 - Immunization history:: Adult Immunizations up to date. - Social history:: Smoking status: Patient reports the use of cigarette tobacco products, smokes one-half pack cigarettes per day. - Family history:: not pertinent. - Hospitalizations: : No recent hospitalization is reported. Screenin:[address] [facility] ED Fall Risk Assessment (Adult) History of falling in the last 3 months, ap3 including since admission No falls in past 3 months (0 pts). Abuse screen: Denies threats or abuse. Nutritional screening: No deficits noted. Tuberculosis screening: No symptoms or risk factors identified. Assessment: 10:05 GI: Abd is soft X 4 quads Abdomen is tender to palpation in right upper quadrant and ap3 right lower quadrant. 12:49 GI: Bowel sounds present X 4 quads. ap3 Vital Signs: 09:53 BP 104 / 78; Pulse 71; Resp 17; Temp 98.8; Pulse Ox 99% on R/A; ll1 09:58 BP 104 / 78; Pulse 71; Resp 17; Temp 98; Pulse Ox 99% ; Weight 81.65 kg; Height 5 ft. 4 ll1 in. ; 09:58 Body Mass Index 30.90 (81.65 kg, 162.56 cm) ll1 ED Course: 09:47 Patient arrived in ED. rg4 09:49 Balbir Cam MD is Attending Physician. rn 10:00 Triage completed. ll1 10:00 Arm band placed on Patient placed in an exam room, on a stretcher. ll1 10:05 Patient has correct armband on for positive identification. Bed in low position. Call ap3 light in reach. Side rails up X 1. Adult w/ patient. Pulse ox on. NIBP on. 10:14 Urinalysis w/ reflexes Sent. bc6 10:15 Marcela Camargo, RN is Primary Nurse. ap3 10:15 Initial lab(s) drawn, by co, sent to lab. Inserted saline lock: 22 gauge in right ap3 antecubital area, using aseptic technique. Blood collected. 10:15 CBC with Diff Sent. ap3 10:15 CMP Sent. ap3 10:15 Lipase Sent. ap3 10:53 CT Abd/Pelvis - IV Contrast Only In Process Unspecified. EDMS 12:48 No provider procedures requiring assistance completed. IV discontinued, intact, ap3 bleeding controlled, No redness/swelling at site. Pressure dressing applied. 12:49 Provided Education on: discharge instructions. ap3 Administered Medications: No medications were administered Medication: 10:06 VIS not applicable for this client. ap3 Outcome: 12:26 Discharge ordered by . rn 12:49 Discharged to home ambulatory, with family, ap3 12:49 Condition: good 12:49 Discharge instructions given to patient, Instructed on discharge instructions, follow up and referral plans. Demonstrated understanding of instructions, follow-up care, :49 Patient left the ED. ap3 Signatures: Dispatcher [employer] EDMS Balbir Cam MD MD rn Garcia, Rubi rg4 Marcela Camargo RN RN ap3 Indra Castaneda RN RN 1 [facility] Graves [facility]
--- NOTE | 2023-08-05 12:27 | EDPHYS ---
Physician Documentation [facility] Name: Pamela Alcala Age: 48 yrs Sex: Female : 1975 Arrival Date: 08/05/2023 Time: 09:45 Bed 8 Private MD: ED Physician Balbir Cam HPI: 08/05 10:38 This 48 yrs old Female presents to ER via Ambulatory with complaints of Abdominal Pain. rn 10:38 The patient presents with abdominal pain right lower quadrant. Onset: The rn symptoms/episode began/occurred this morning. The symptoms do not radiate. Associated signs and symptoms: Pertinent negatives: nausea and vomiting, blood in stools, chest pain, constipation, diarrhea, dysuria, fever, hematuria, shortness of breath, vomiting, vomiting blood. Modifying factors: The symptoms are alleviated by nothing, the symptoms are aggravated by nothing. Severity of pain: At its worst the pain was mild in the emergency department the pain is unchanged. The patient has not experienced similar symptoms in the past. The patient has not recently seen a physician. Patient reports right lower quadrant abdominal pain that started this morning. Patient with a history of kidney stones and states this feels different. Also has known problems with the left kidney due to hydronephrosis and has surgery scheduled for left nephrectomy coming up. Patient reports cramping abdominal pain that started this morning at 2 AM. No fever. No vomiting. No blood in stool or diarrhea. Has already had cholecystectomy in the past as well.. 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 - Social history:: Smoking status: Patient reports the use of cigarette tobacco products, smokes one-half pack cigarettes per day. - Family history:: not pertinent. - Hospitalizations: : No recent hospitalization is reported. ROS: 10:38 Constitutional: Negative for fever, chills, and weight loss, Cardiovascular: Negative rn for chest pain, palpitations, and edema, Respiratory: Negative for shortness of breath, cough, wheezing, and pleuritic chest pain, Abdomen/GI: Positive for right-sided abdominal pain Back: Negative for injury and pain, MS/Extremity: Negative for injury and deformity, Skin: Negative for injury, rash, and discoloration, Neuro: Negative for headache, weakness, numbness, tingling, and seizure, Exam: 10:38 Constitutional: This is a well developed, well nourished patient who is awake, alert, rn and in no acute distress. Head/Face: Normocephalic, atraumatic. Cardiovascular: Regular rate and rhythm. No pulse deficits. Respiratory: No increased work of breathing, no retractions or nasal flaring. Abdomen/GI: Soft, mild right lower quadrant abdominal tenderness. No rebound or guarding MS/ Extremity: Pulses equal, no cyanosis Neuro: Awake and alert, GCS 15 Vital Signs: 09:53 BP 104 / 78; Pulse 71; Resp 17; Temp 98.8; Pulse Ox 99% on R/A; ll1 09:58 BP 104 / 78; Pulse 71; Resp 17; Temp 98; Pulse Ox 99% ; Weight 81.65 kg; Height 5 ft. 4 ll1 in. ; 09:58 Body Mass Index 30.90 (81.65 kg, 162.56 cm) ll1 MDM: 09:49 Patient medically screened. rn 12:13 Differential diagnosis: appendicitis, bowel obstruction, diverticulitis, gastritis, rn non-specific abd pain, pancreatitis, Peptic Ulcer Disease, Ureterolithiasis, urinary tract infection. Data reviewed: vital signs, nurses notes, lab test result(s), radiologic studies, CT scan, and as a result, I will discharge patient. Counseling: I had a detailed discussion with the patient and/or guardian regarding the historical points, exam findings, and any diagnostic results supporting the discharge/admit diagnosis, lab results, radiology results, the need for outpatient follow up, to return to the emergency department if symptoms worsen or persist or if there are any questions or concerns that arise at home. Special discussion: Based on the patient's Hx, exam, and Dx evaluation, there is no indication for emergent surgery or inpatient Tx. It is understood by the patient/guardian that if the Sx's persist or worsen they need to return immediately for re-evaluation. I discussed with the patient/guardian in detail that at this point there is no indication for admission to the hospital. It is understood, however, that if the symptoms persist or worsen the patient needs to return immediately for re-evaluation. Based on the history and exam findings, there is no indication for further emergent testing or inpatient evaluation. I discussed with the patient/guardian the need to see the primary care provider for further evaluation of the symptoms. ED course: No acute findings and labs/urine/CT abdomen pelvis. Stable vital signs. Will DC home with return precautions. I have personally reviewed all of the results, including but not limited to blood tests and imaging deemed necessary to safely discharge this patient at this time. All results given to and printed out for patient. I personally went over all the results with the patient and answered all questions. Patient will follow-up with PCP and or specialist as discussed. Return precautions given and understood.. 08/05 10:04 Order name: CBC with Diff; Complete Time: 10:41 rn 08/05 10:04 Order name: CMP; Complete Time: 10:41 rn 08/05 10:04 Order name: Lipase; Complete Time: 10:41 rn 08/05 10:04 Order name: Urinalysis w/ reflexes; Complete Time: 10:41 rn 08/05 10:04 Order name: CT Abd/Pelvis - IV Contrast Only; Complete Time: 11:31 rn 08/05 10:04 Order name: IV Saline Lock; Complete Time: 10:15 rn 08/05 10:04 Order name: Labs collected and sent; Complete Time: 10:15 rn Administered Medications: No medications were administered Disposition Summary: 08/05/23 12:26 Discharge Ordered Notes: Location: Home rn Problem: new rn Symptoms: have improved rn Condition: Stable rn Diagnosis - Abdominal pain, unspecified rn Followup: rn - With: Private Physician - When: As needed - Reason: Recheck today's complaints, Re-evaluation by your physician Discharge Instructions: - Discharge Summary Sheet rn - Abdominal Pain, Adult rn Forms: - Medication Reconciliation Form rn - Thank You Letter rn - Antibiotic roller varnisher - Prescription Opioid Use rn - Patient Portal Instructions rn - Leadership Thank You Letter rn Signatures: Dispatcher [employer] Balbir Wong MD MD rn Lewis, Lynsay, RN RN ll1
[2023-08-05 13:47] VITALS: BP 104/78; TEMP 98; O2SAT 99
== END ==
LOC: ER 09:45
DX: R10.31 Right lower quadrant pain (principal); E11.9 Type 2 diabetes mellitus without complications; I10 Essential (primary) hypertension; F17.210 Nicotine dependence, cigarettes, uncomplicated; Z87.442 Personal history of urinary calculi
CPT/HCPCS: 85025; 81001; 36415; 83690; 80053; 74177; Q9967

== ENCOUNTER 2023-08-11 09:07 | Inpatient (IN) | payer OTHER ==
--- NOTE | 2023-07-07 10:06 | RAD REPORT ---
EXAM DESCRIPTION: RAD - Chest Pa And Lat (2 Views) - 07/07/2023 9:58 am CLINICAL HISTORY: Pre op pending nephrectomy COMPARISON: Abdomen 1 View (KUB) dated 06/04/2023; Chest Single View dated 08/27/2022 FINDINGS: Lines: None. Lungs: No evidence of edema or pneumonia. Pleural: No significant pleural effusions or pneumothorax. Cardiac: The heart size is within normal limits. Mediastinum: Within normal limits. Bones: No acute fractures. Other: None IMPRESSION: No acute cardiopulmonary disease.
[2023-07-07 10:37] LABS: Absolute Lymphocytes (CBC) 2.2 K/uL (0.7-4.9); Hematocrit 39.8 % (36.0-45.0); Lymphocytes % 21.8 % (15.3-44.8); MCV 86.2 fL (80-100); MPV 9.9 fL (7.6-11.3); Platelets 249 thou/uL (152-406); RBC Red Blood Cell Count 4.61 M/uL (3.86-4.86)
[2023-07-07 10:39] LABS: Protime INR 1.03
[2023-07-07 10:43] LABS: Potassium 3.7 mEq/L (3.5-5.1)
--- NOTE | 2023-07-07 11:46 | EKG ---
Test Date: 2023-07-07 Test Time: 10:40:43 Inspector Packer Glass Container: MICKEY MEASUREMENT RESULTS: Intervals: Rate: 61 MI: 186 QRSD: 106 QT: 422 QTc: 424 [place]: P: 71 MI: 186 QRS: 45 T: 71 INTERPRETIVE STATEMENTS: Normal sinus rhythm Normal ECG Compared to ECG 08/27/2022 20:28:58 Sinus tachycardia no longer present Electronically Signed On 07-07-23 11:45:36 ROAD WORKER by Pawan Pratt
[2023-08-11] MEDS ORDERED: Ringers Lactate 1,000 ML IV ONE ×2 (09:48→12:58)
[2023-08-11] MEDS ORDERED: ONDANSETRON 4 MG/2 ML VIAL ONE (10:01)
[2023-08-11] MEDS ORDERED: dexAMETHasone 10 MG/ML VIAL ONE (10:01)
[2023-08-11] MEDS ORDERED: LIDOCAINE 1% MPF 5 ML VIAL ONE (10:02)
[2023-08-11] MEDS ORDERED: FENTANYL CITR 100 MCG/2 ML ONE ×3 (10:02→14:06)
[2023-08-11] MEDS ORDERED: propofoL 200 MG/20 ML VIAL IV ONE (10:02)
[2023-08-11] MEDS ORDERED: MIDAZOLAM HCL 2 MG/2 ML INJ ONE (10:03)
[2023-08-11] MEDS ORDERED: CEFAZOLIN SODIUM 2 GM/VIAL ONE (10:16)
[2023-08-11] MEDS ORDERED: ROCURONIUM 50 MG/5 ML VIAL IV ONE ×2 (12:27→14:33)
[2023-08-11] MEDS ORDERED: EPHEDRINE SULF 50 MG/ML VIAL ONE (12:35)
[2023-08-11] MEDS ORDERED: Phenylephrine HCl 10 MG/ML 1 ML VIAL ONE (12:36)
[2023-08-11] MEDS ORDERED: VECURONIUM 10 MG/VIAL IV ONE (14:33)
[2023-08-11] MEDS ORDERED: SUGAMMADEX SODIUM 200 MG/2 ML VIAL IV ONE (15:05)
[2023-08-11] MEDS: HYDROMORPHONE HCL 1 MG/ML INJ ONE ×3 (16:23→16:53)
[2023-08-11] MEDS ORDERED: HYDROMORPHONE HCL 1 MG/ML INJ ONE (16:52)
[2023-08-11] MEDS ORDERED: Ringers Lactate 500 ML IV ONE (16:55)
[2023-08-11] MEDS: METFORMIN ER 500 MG TAB PO SCH (17:00)
[2023-08-11] MEDS ORDERED: ACETAMINOPHEN 325 MG TABLET PO PRN (17:07)
[2023-08-11] MEDS: ONDANSETRON 4 MG/2 ML VIAL IV PRN (18:19)
[2023-08-11] MEDS: D5 0.45 NS 1,000 ML IV SCH (18:19)
[2023-08-11 19:51] VITALS: BMI 30.9
[2023-08-11] MEDS: HYDROMORPHONE HCL 1 MG/ML INJ IV PRN ×2 (20:03→22:16)
[2023-08-11] MEDS: METOPROLOL XL 25 MG TAB PO SCH (21:00)
--- NOTE | 2023-08-11 21:21 | OP ---
Surgeon: GAEL CHILDS Preoperative Diagnoses: 1.Left atrophic and poorly functioning kidney. 2.Chronic left flank pain. 3.History of left ureteral stricture disease. 4.History of recurrent ureterolithiasis with nephrolithiasis. 5.History of subcapsular hematoma. Postoperative Diagnoses: 1.Left atrophic and poorly functioning kidney. 2.Chronic left flank pain. 3.History of left ureteral stricture disease. 4.History of recurrent ureterolithiasis with nephrolithiasis. 5.History of subcapsular hematoma. Principal Procedure: Left laparoscopic simple nephrectomy. Indication For Procedure: Ms. Alcala is a 48-year-old woman who presented to [facility] with an obstructing proximal ureteral calculus. Unfortunately, the stone was impacted and she re quired definitive ureteroscopy with laser lithotripsy to ultimately remove it, but at the time of jermain t procedure, the stone was noted to be imbedded within the wall of the ureter. As a result, a stent was left for longer than 6 weeks to try to mitigate the risk of stricture disease formation, but afte r several months of observation, she developed recurrent left flank pain and imagery indicated the pr esence of recurrent left-sided hydronephrosis. Ultimately, she underwent endoscopic intervention wit h stent placement, and on one of the episodes of ureteroscopic intervention, after decompressing her massively hydronephrotic kidney obstructed due to the presence of the stricture, she developed a subc apsular hematoma, which resulted in compression and cortical loss. Over time and observation, the he matoma did essentially resolved with noted atrophy of the kidney, but the kidney function remained re latively poor at around 13% on nuclear medicine MAG 3 Lasix renography. As a result, after extensive counseling, the patient elected to forego attempts at potential repair of any stricture disease and management of the residual left nephrolithiasis and instead elected to proceed with nephrectomy to re move the kidney and eliminate the likely source of her chronic left flank pain. Of note, immediately prior to the procedure, I reviewed an incidentally discovered CT scan performed within the last few days because the patient went to the emergency department complaining of some right flank/right upper quadrant pain. I took a picture of the images of the IV contrast CT scan, which showed absence of a ny residual hematoma on the left side. While the kidney was smaller than the right, it had actually a reasonable cortical preservation. It also took up the IV contrast reasonably. As a result, since the patient was already under anesthesia, at this point, I discussed the situation with her a nd daughter and explained that on review of the most recent imaging, it did appear that there may hav e been further improvement in the kidney function with complete resolution of the hematoma. I explai reanna that while the appearance was certainly positive, there was no guarantee there would be any signi ficant functional improvement demonstrated, or if any were seen, it was likely to be minimal, i.e., f rom 13% to 16% or 18%. As such, I questioned whether they felt the patient would still wish to proce ed with nephrectomy given the potential for improvement in kidney function over time. They both expl ained that the patient had been dealing with pain associated, presumably, with that left kidney for a n extended period of time, and she would rather get rid of the kidney despite the potential for sligh t improvement instead of keeping the kidney and having to continue to deal with the pain. As a resul t, understanding the patient's wishes, which had clearly been expressed on multiple occasions preoper atively and reaffirmed despite efforts to try to get her to alter her thinking, we agreed to proceed with nephrectomy as planned. Procedure In Detail: The patient was consented in the preoperative holding area before being transfe rred to the operative suite where general anesthesia was induced. An OG tube was placed for gastric decompression. Pneumo boots were provided for DVT prophylaxis. Ancef 2 g was given for IV antimicro bial prophylaxis. She was placed in the modified flank position with the left side up with an axilla ry roll beneath her right axilla and a neuro roll placed beneath her left flank from her shoulders do wn to her hips. She was padded extensively and secured to the table appropriately with 3-inch tape u ntil there was no movement with the table in the complete left and then complete tilted right positio ns. Of note, prior to positioning the patient, the nurses did place a 16-[place] urethral Love joe ter with drainage of clear yellow urine. We then applied 10/10 drapes to towel off the abdomen and t hen prepped the abdomen using ChloraPrep before draping the operative field in standard fashion. A s tandard laparoscopic instrumentation was used and a Veress needle was used to gain intraabdominal acc ess via the left upper quadrant. Then marking the standard 2-arm laparoscopic approach for a nephrec kirby, after her abdomen was appropriately insufflated to 15 mmHg, an upper midline incision was made after instilling subcutaneous Marcaine. This incision was 5 mm and a 5 mm optical trocar was used to gain access through the subcutaneous tissues and the fascia into the abdominal cavity. The abdomina l cavity was surveyed, and there were no significant intraabdominal adhesions. The Veress needle was noted and was removed. There was no injury within. As a result, the remaining laparoscopic trocars were placed with another 5 mm trocar in the left lateral quadrant and a 12 mm trocar in the periumbi lical location on the left side inferiorly. With all trocars appropriately placed and examination of the trocar entry sites was performed via a look back technique without any evidence of bowel injury, we then utilized a 10 mm lens 30 degrees to begin the dissection and division of the line of Toldt, reflecting the left hemicolon. Of note, there was significant additional work required because the v brandy apex of the colon at the splenic flexure was involved deep within the hilum of the spleen and had to literally be dissected millimeter by millimeter to release it from its attachment there without c olonic injury or injury to the spleen. The spleen was partially reflected in that process, but event ually the colon was reflected. The pancreas with adventitia around it and in fact a layer of the ret roperitoneum still over it was visible and from the apical portion of the kidney using haroldo p dissection with the LigaSure cautery. Additional dissection to free the upper pole of the kidney w ithin Gerota's fascia from the spleen and pancreas was performed before we then turned our attention to continued reflection of the colon and releasing it off the anterior surface of the kidney until it was adequately reflected down to the level of the great vessels. I then visualized the gonadal vess el on the left and dissected above it to identify the ureter. The ureter was elevated, and the poste rior attachments were released to visualize the psoas fascia and musculature. Continued dissection w as taken up to the hilum where the gonadal vessel did join with the renal vein. Because the renal ar michael was very superior beneath the renal vein and given the difficulty with a reflection of the colon due to its attachment at the splenic flexure, I used metal clips to ligate and divide the gonadal ve in, so that I could more easily dissect beneath the main renal vein and ultimately visualize the mónica l artery which was dissected and noted to be pulsating behind the superior most portion of the renal vein. Then, using a MONROE vascular load 45 mm stapler, I was able to ligate and divide the renal arter y and then using a similar stapler, I ligated and divided the renal vein sparing the adrenal which wa s visible. LigaSure electrocautery was used to release the remaining vascular attachments between th e upper pole medial portion of the kidney and the adrenal and then any remaining upper pole attachmen ts until I reached the upper pole lateral aspect of the kidney. I then turned my attention back to t he ureter, which was clipped using metal clips and then divided using LigaSure electrocautery. I the n divided the tail of Gerota and then the lateral attachments of the kidney adjoining it with the sup erior most attachments until the kidney was completely freed. An EndoCatch bag was placed into the a bdomen via the 12 mm port and the kidney was placed into the EndoCatch bag. Of note, after the renal artery and vein had been ligated and divided, I decreased the insufflation pressure to 12 mmHg. Onc e the kidney was placed in the EndoCatch bag, I then further decreased the insufflation pressure to 8 mmHg and surveyed the intraabdominal nephrectomy bed for any signs of bleeding. There was a slight degree of ooze from the staple line around the renal artery and vein; so, I utilized metal clips, anson fabian sequentially along that stump to clip it and ensured that it was completely hemostatic. Once thi s was performed, there was no evidence of any significant bleeding; so we used Darnell sealant applied to the nephrectomy bed and beneath the splenic component facing the kidney. We then removed the 5 m m trocars under direct vision and there was no bleeding, so I decompressed abdomen of the insufflatio n and removed the 12 mm trocar. I then instilled 0.25% Marcaine into the inferior portion of the low er midline incision as I joined with the periumbilical incision already made for placement of the 12 mm trocar. This was then incised using a 10 blade and deepened through the subcutaneous tissues usin g electrocautery until the fascia was visualized. The fascia was then divided in the midline until t he peritoneum was also visualized and divided. Once we gained intraabdominal access, I then removed the EndoCatch bag with the kidney inside and sent it for pathologic analysis. The fascia was then cl osed in a running fashion using #1 PDS looped, and in the end, the fascia was well approximated. Irr igation was applied to the subcutaneous tissues as well as a 0.25% Marcaine to all of the incisions. I used 3-0 Vicryl to reapproximate the dermal layers of the lower midline incision and then used 4-0 Monocryl to perform subcuticular stitches of the various incisions. Dermabond was used to seal the skin, and the patient was taken out of the modified flank position. She was then awakened from gener al anesthesia after the OG tube was removed. She was transferred to a stretcher, and then transferre d to the recovery room in good condition. Complications: None. Discharge Disposition: She will be standard postoperative nephrectomy pathway with plan to provide h er with clear liquid diets for the evening meal. Bowel regimen with milk of magnesia and a Dulcolax suppository will be provided tomorrow morning. If her renal function remains adequate, we will provi de her with Toradol for pain management 15 mg IV q.6 hours scheduled. If she is able to tolerate a d iet, her pain is controlled, and once the catheter is removed in the morning, she demonstrates the ab ility to void, she will then be eligible for discharge home. LISA/EDWINL Voice ID: [id number] Report ID: [id number]
[2023-08-11] MEDS: BUPROPRION HCL S.R. 150MG TAB PO SCH (22:15)
[2023-08-12] MEDS: HYDROMORPHONE HCL 1 MG/ML INJ IV PRN ×5 (00:15→14:48)
[2023-08-12] MEDS: D5 0.45 NS 1,000 ML IV SCH ×2 (00:18→08:09)
[2023-08-12] MEDS: ONDANSETRON 4 MG/2 ML VIAL IV PRN ×2 (02:35→08:11)
[2023-08-12 05:32] LABS: Absolute Lymphocytes (CBC) 0.9 K/uL (0.7-4.9); Hematocrit 35.8 % (36.0-45.0); Lymphocytes % 5.6 % (15.3-44.8); MCV 86.9 fL (80-100); MPV 9.4 fL (7.6-11.3); Platelets 232 thou/uL (152-406); RBC Red Blood Cell Count 4.12 M/uL (3.86-4.86)
[2023-08-12] MEDS: hydroCHLOROthiazide 12.5 MG CAP PO SCH (08:08)
[2023-08-12] MEDS: BISACODYL 10 MG RECTAL SUPP PR SCH ×2 (08:08→09:00)
[2023-08-12] MEDS: lisinopriL 5 MG TAB PO SCH (08:09)
[2023-08-12] MEDS: METFORMIN ER 500 MG TAB PO SCH ×2 (08:09→17:00)
[2023-08-12] MEDS: MAGNESIUM HYDROXIDE 8% 30 ML PO SCH (08:09)
[2023-08-12] MEDS: BUPROPRION HCL S.R. 150MG TAB PO SCH ×2 (09:22→21:08)
[2023-08-12] MEDS: KETOROLAC 30 MG/ML INJ IV SCH ×3 (09:23→21:08)
[2023-08-12] MEDS ORDERED: DIPHENHYDRAMINE 25 MG TAB/CAP PO PRN (13:36)
--- NOTE | 2023-08-12 14:40 | P.PN ---
Subjective Date of Service: 08/12/23 Chief Complaint: s/p left lap nephrectomy POD#1 Subjective: Improving, Doing well POD#1 s/p left laparoscopic radical nephrectomy, and the she was doing well. She denied any nausea or vomiting, fever or chills. Her pain was controlled through the night with IV Dilaudid. She had yet to ambulate, and the urethral catheter remained in place as of my visit with her at 7:45 AM. Physical Examination - Vital Signs Temperature: 97.9 F Blood Pressure: 91/45 Pulse: 85 Respirations: 18 Pulse Ox (%): 98 - Physical Exam General: Alert, In no apparent distress, Oriented x3 HEENT: Atraumatic, Normocephalic, PERRLA, Mucous membr. moist/pink Respiratory: Normal air movement Cardiovascular: No edema Gastrointestinal: Soft and benign, Non-distended, No tenderness (Appropriate postoperative tenderness), No rebound, No guarding Musculoskeletal: No tenderness Neurological: Normal speech Urinary: Love catheter (Clear yellow urine) - Studies Laboratory Data (last 24 hrs) 08/12/23 08/12/23 04:40 04:40 WBC 15.70 H Hgb 12.2 Hct 35.8 L Plt Count 232 Sodium 135 L Potassium 4.0 BUN 10 Creatinine 0.94 Glucose 141 H Assessment And Plan - Current Problems (Diagnosis) (1) Left flank pain, chronic Current Visit: Yes Status: Acute (2) Left nephrolithiasis Current Visit: No Status: Resolved (3) Ureteral stricture, left Current Visit: No Status: Resolved - Plan Toradol 15 IV every 6 Benadryl for itching Continue Dilaudid 0.5 to 1 mg IV every hour as needed Milk of magnesia Dulcolax suppository Ambulate 4 times daily with assist -Awaiting flatus and will advance diet accordingly -Continue IV fluids, D5 half NS, but decreased to 84 cc/h Discharge Plan: Home Plan to discharge in: 24 Hours Critical Care: No Time Spent Managing PTS Care (In Minutes): 20
[2023-08-12] MEDS ORDERED: D5.45NS W/KCL 20MEQ 20 MEQ/1,000 ML BAG IV SCH ×2 (15:00→22:00)
[2023-08-12] MEDS: METOPROLOL XL 25 MG TAB PO SCH (21:00)
--- NOTE | 2023-08-12 21:11 | P.PN ---
Date of Service: 08/12/23 Spoke with the patient in follow-up who indicated she was able to pass flatus, and her pain has been controlled today on the Toradol without the need for the additional IV narcotic. She did not receive the suppository as I had ordered. Apparently the nurse suggested it to be optional in someway and that they could wait to see if she passed flatus on her own. Eventually she did in the afternoon. She was able to eat soup for dinner, but she has not had solid food yet. The only concern is as of our conversation, the emanations analysis technician was apparently checking her vitals and found her oxygen saturation to be 89 at rest. She did not feel short of breath in any way while seated. She did suggest she had a degree of dyspnea when she had been up walking earlier. Diagnoses and recommendation: Dyspnea and hypoxia -Chest x-ray to rule out pneumothorax s/p left laparoscopic radical nephrectomy -Tatamy for oral narcotic pain control as needed -Continue Toradol 15 IV every 6 -Continue milk of magnesia -Give Dulcolax suppository to encourage bowel movement if patient has yet to have 1 -A.m. labs
[2023-08-12] MEDS ORDERED: HYDROCODONE/APAP 5/325 MG TAB PO PRN (21:12)
--- NOTE | 2023-08-12 21:42 | RAD REPORT ---
EXAM DESCRIPTION: RAD - Chest Pa And Lat (2 Views) - 08/12/2023 9:36 pm CLINICAL HISTORY: r/o pneumothorax and assess source of hypoxia Chest pain. COMPARISON: Chest Pa And Lat (2 Views) dated 07/07/2023; Abdomen 1 View (KUB) dated 06/04/2023; Ches t Single View dated 08/27/2022; Abdomen Pelvis W Contrast dated 08/05/2023 FINDINGS: Moderate bibasilar lung opacities are present, which may represent atelectasis or infectio n/ pneumonia. The heart is normal in size. No displaced fractures. IMPRESSION: Moderate underaeration of the lungs with bibasilar lung opacities, slightly worse on the right. Findings are favored to represent atelectasis, less likely infection/pneumonia.
[2023-08-12] MEDS ORDERED: ALBUTEROL 2.5 MG/3 ML NEB SOL NEB PRN (23:02)
[2023-08-13] MEDS: KETOROLAC 30 MG/ML INJ IV SCH ×3 (02:01→15:10)
[2023-08-13 07:51] LABS: Absolute Lymphocytes (CBC) 1.5 K/uL (0.7-4.9); Hematocrit 32.6 % (36.0-45.0); Lymphocytes % 12.3 % (15.3-44.8); MCV 86.5 fL (80-100); MPV 8.9 fL (7.6-11.3); Platelets 227 thou/uL (152-406); RBC Red Blood Cell Count 3.77 M/uL (3.86-4.86)
[2023-08-13 08:03] LABS: Potassium 3.6 mEq/L (3.5-5.1)
[2023-08-13] MEDS: lisinopriL 5 MG TAB PO SCH (08:44)
[2023-08-13] MEDS: METFORMIN ER 500 MG TAB PO SCH (08:44)
[2023-08-13] MEDS: BISACODYL 10 MG RECTAL SUPP PR SCH (08:44)
[2023-08-13] MEDS: hydroCHLOROthiazide 12.5 MG CAP PO SCH (08:44)
[2023-08-13] MEDS: BUPROPRION HCL S.R. 150MG TAB PO SCH (08:44)
[2023-08-13] MEDS: MAGNESIUM HYDROXIDE 8% 30 ML PO SCH (08:44)
[2023-08-13 10:51] VITALS: O2SAT 93
[2023-08-13 12:56] VITALS: BP 91/48; TEMP 98.3
--- NOTE | 2023-08-13 13:07 | P.PN ---
Subjective Date of Service: 08/13/23 Chief Complaint: s/p left lap nephrectomy POD#2 Subjective: Tolerating diet, Ambulating, Doing well POD#2 s/p left laparoscopic radical nephrectomy. Tolerating diet +flatus. Voiding. Pain controlled with [place] and Toradol. Ready for discharge. She expressed that the pain she had been experiencing all of these months to years, she was no longer feeling. She did have the surgical site pain, but she was pleased to know the other pain was gone. She again requested explanation for what happened to the left kidney, and I explained again the development of the subcapsular hematoma that resulted in compression of the kidney, following aspiration of a hydronephrotic and dilated renal pelvis with purulence indicative of infection. Physical Examination - Vital Signs Temperature: 98.3 F Blood Pressure: 91/48 Pulse: 84 Respirations: 18 Pulse Ox (%): 97 - Physical Exam General: Alert, In no apparent distress, Oriented x3, Cooperative HEENT: Atraumatic, Normocephalic, PERRLA, Mucous membr. moist/pink Respiratory: Normal air movement Cardiovascular: No edema Gastrointestinal: Soft and benign, No rebound, No guarding Integumentary: Other (Incisions clean, dry, and intact) Urinary: Other (Voiding) - Studies Laboratory Data (last 24 hrs) 08/13/23 08/13/23 07:37 07:37 WBC 12.30 H Hgb 11.0 L D Hct 32.6 L Plt Count 227 Sodium 138 Potassium 3.6 BUN 9 Creatinine 0.93 Glucose 103 Medications List Reviewed: Yes Assessment And Plan - Current Problems (Diagnosis) (1) Left flank pain, chronic Current Visit: Yes Status: Resolved (2) Left nephrolithiasis Current Visit: No Status: Resolved (3) Ureteral stricture, left Current Visit: No Status: Resolved - Plan HLIVF [place] PRN Stable for discharge to home today Critical Care: No Time Spent Managing PTS Care (In Minutes): 15
--- NOTE | 2023-08-13 13:14 | P.DS ---
Admission Date: 08/12/23 Discharge Date: 08/13/23 Disposition: ROUTINE DISCHARGE Discharge Condition: GOOD Reason for Admission: s/p left lap nephrectomy POD#2 Procedures: Left laparoscopic radical nephrectomy 08/11/2023 - Problems (1) Left flank pain, chronic Current Visit: Yes Status: Resolved (2) Left nephrolithiasis Current Visit: No Status: Resolved (3) Ureteral stricture, left Current Visit: No Status: Resolved Brief History of Present Illness: 48-year-old woman with chronic left flank pain associated with hydronephrosis due to proximal ureteral stricture disease which occurred following development of an impacted large proximal ureteral calculus previously managed with ureteroscopy with laser lithotripsy and stent. Despite endoscopic attempts to manage the stricture, the patient's pain persisted, and the stricture disease recurred. She eventually developed recurrent severe hydronephrosis associated with the recurrent stricture disease, and upon endoscopic survey with the prior negative voided urine, purulence was observed in the collecting system which prompted aspiration of that purulence from the collecting system to also decompress the massive hydronephrosis seen. This resulted in development of a subcapsular hematoma in the postoperative period, which resulted in compression and damage of the left renal unit. The hematoma subsequently resolved, but the kidney was significantly shrunken in size, and the function was minimal at less than 15%. Despite this, the patient had persistent pain and instead of trying to address any potential residual stricture disease with pyeloplasty, though no definitive obstruction was seen, patient elected instead to undergo nephrectomy to rid herself of the source of the pain and kidney stones given the minimal kidney function. Hospital Course: s/p left laparoscopic nephrectomy 08/11/2023 uncomplicated. Admitted overnight with pain controlled via IV Dilaudid. Patient passed flatus postop day 1 in the afternoon and was advanced to her diabetic diet, but she had issues with persistent hypoxia and phlegm. Chest x-ray was obtained revealing significant atelectasis; so pulmonary toilet and chest PT was performed with albuterol nebs, and her oxygen requirement resolved and she improved. She continued to pass flatus, and was tolerating oral pain medications. She tolerated a diet and thus was eligible for discharge home. Vital Signs/Physical Exam: see todays' note Temp Pulse Resp BP Pulse Ox 98.3 F 84 18 91/48 L 97 08/13/23 13:07 08/13/23 13:07 08/13/23 13:07 08/13/23 13:07 08/13/23 13:07 Laboratory Data at Discharge: WBC 12.30 thou/uL (4.3-10.9) H 08/13/23 07:37 Hgb 11.0 g/dL (12.0-15.0) L D 08/13/23 07:37 Hct 32.6 % (36.0-45.0) L 08/13/23 07:37 Plt Count 227 thou/uL (152-406) 08/13/23 07:37 PT 11.3 SECONDS (9.5-12.5) 07/07/23 09:46 INR 1.03 07/07/23 09:46 Sodium 138 mEq/L (136-145) 08/13/23 07:37 Potassium 3.6 mEq/L (3.5-5.1) 08/13/23 07:37 BUN 9 mg/dL (7-18) 08/13/23 07:37 Creatinine 0.93 mg/dL (0.55-1.02) 08/13/23 07:37 Glucose 103 mg/dL (74-106) 08/13/23 07:37 Home Medications: Metformin HCl [Glucophage*] 500 mg PO BIDWM 11/22/21 Metoprolol Tartrate [Lopressor*] 12.5 mg PO BEDTIME 11/22/21 Ferrous Sulfate [Iron] 325 mg PO DAILY 07/07/23 Lisinopril [Zestril] 5 mg PO DAILY 07/07/23 buPROPion HCL [Bupropion HCl Sr] 150 mg PO BID 07/07/23 hydroCHLOROthiazide [Hydrochlorothiazide*] 12.5 mg PO DAILY 07/07/23 Acetaminophen [Tylenol*] 650 mg PO Q6H PRN tab 08/13/23 Hydrocodone 5/APAP 325 [[place] 5/325*] 1 tab PO Q6H PRN #20 tab 08/13/23 New Medications: Hydrocodone 5/APAP 325 [[place] 5/325*] 1 tab PO Q6H PRN #20 tab PRN Reason: Pain Scale 5-7 (Moderate) Physician Discharge Instructions: Continue taking your metformin, metoprolol, Wellbutrin and iron tablets, but hold off on taking your lisinopril and HCTZ/hydrochlorothiazide at this time. Your blood pressure has improved and even been a bit low after removal of the kidney, which may have contributed to your high blood pressure in the first place. We will reassess your blood pressure on follow-up and determine if you need to resume either the lisinopril or the hydrochlorothiazide at that time. Notify me if you develop any fever, temperature greater than 100.4 Fahrenheit, intractable nausea or vomiting, increasing pain not controlled by pain medications, problems with your incision, or other unusual signs or symptoms. I have sent a prescription for [place], which is Tylenol plus hydrocodone -this is a moderate strength narcotic for pain management. Please avoid taking more than 3000 mg / 3 g of Tylenol (also known as acetaminophen) within a 24-hour period. So take care if you are alternating taking plain Tylenol with the [place] to avoid taking too much acetaminophen in a 24-hour period. You may also take Motrin/ibuprofen, up to 600 mg every 8 hours maximum, to help with your pain. Follow-up as scheduled with me in 1 to 2 weeks interval assessment. All the best! WBR Diet: ADA Activity: No straining or heavy lifting over 25 pounds for the next 6 weeks, but walk Followup: Maday Fay MD [Primary Care Provider] - Time spent managing pt's care (in minutes): 20
== END 2023-08-13 15:51 | disposition home or self-care (01) | DRG 661 ==
LOC: OR 09:07 → 2ND 16:43 → OBSVTOIN 08-12 20:51
PROVIDERS: ADMIT Urology; ATTEND Urology
PROC: 0TB14ZZ Excision of Left Kidney, Percutaneous Endoscopic Approach (ICD-10-PCS; principal; 2023-08-12)
PROC: 0T9B70Z Drainage of Bladder with Drainage Device, Via Natural or Artificial Opening (ICD-10-PCS; 2023-08-12)
DX: N26.1 Atrophy of kidney (terminal) (principal); N13.5 Crossing vessel and stricture of ureter without hydronephrosis; N20.0 Calculus of kidney; R82.71 Bacteriuria; Z79.84 Long term (current) use of oral hypoglycemic drugs; Z79.899 Other long term (current) drug therapy
CPT/HCPCS: 36415; 71046; 80048; 85025; 85610; 86850; 86900; 86901; 87086; 87088; 88307; 93005; 94010; 94640; G0378; G0379; J1100; J1170; J2001; J2250; J2371; J2405; J2704; J3010; J7120; J7613; J7799

== ENCOUNTER 2025-04-09 13:50 | Emergency (ER) | payer OTHER ==
[2025-04-09] MEDS ORDERED: MORPHINE 4 MG/ML SYR ONE (14:11)
[2025-04-09] MEDS ORDERED: ONDANSETRON 4 MG/2 ML VIAL ONE (14:11)
[2025-04-09] MEDS ORDERED: NA CHLORIDE 0.9% 500 ML ONE (14:12)
[2025-04-09 14:13] LABS: Absolute Lymphocytes (CBC) 2.4 K/uL (0.7-4.9); Hematocrit 43.3 % (36.0-45.0); Hemoglobin 14.1 g/dL (12.0-15.0); MCH 27.8 pg (27.0-35.0); MCHC 32.5 g/dL (32.0-36.0); MCV 85.4 fL (80-100); MPV 9.6 fL (7.6-11.3); Nucleated RBC Absolute Count 0.0 (0-0); Nucleated Red Blood Cells % 0.0 % (0-0); RBC Red Blood Cell Count 5.07 M/uL (3.86-4.86); White Blood Count 10.00 thou/uL (4.3-10.9)
[2025-04-09 14:26] LABS: Calcium Oxalate Crystals- Ur Moderate /HPF (None Seen); Urine Culture Reflex Order NOT NEEDED; Urine Microscopic Reflex YN ORDER UMIC
[2025-04-09 14:30] LABS: ALT/SGPT 21 U/L (13-56); Albumin 3.5 g/dL (3.4-5.0); Albumin/Globulin Ratio 0.9 (1.1-1.8); Alkaline Phosphatase 104 U/L (45-117); Anion Gap 10.9 mEq/L (5.0-15.0); BUN Blood Urea Nitrogen 22 mg/dL (7-18); Globulin 3.7 g/dL (2.3-3.5); Glucose Level 102 mg/dL (74-106); Lipase 53 U/L (13-75); Potassium 3.9 mEq/L (3.5-5.1)
[2025-04-09 14:31] LABS: AST/SGOT < 10 U/L (15-37)
[2025-04-09] MEDS ORDERED: DIPHENHYDRAMINE 50 MG/ML VIAL ONE (14:33)
[2025-04-09] MEDS ORDERED: METHYLPREDNISOLONE 125 MG INJ ONE (14:33)
--- NOTE | 2025-04-09 14:40 | RAD REPORT ---
Stone Protocol CLINICAL INDICATION: Female, 49 years old.FLANK PAIN TECHNIQUE: CT abdomen and pelvis was performed, without IV contrast, as per department protocol using a CT stone protocol. Axial, sagittal and coronal reconstructions were obtained. One or more of the following dose reduction techniques were used: Automated exposure control, adjustment of the mA and/o r kV according to the patient size, and/or iterative reconstruction. Unless otherwise specified, incidental findings do not require dedicated imaging follow-up. [id number]. IV CONTRAST: Not administered. COMPARISON: 02/12/2024 FINDINGS: The lack of intravenous contrast limits the sensitivity of this exam for evaluation of solid visceral organs, vascular structures, and retroperitoneum. LOWER CHEST: No acute process identified.No significant pericardial effusion. UPPER GI: No significant abnormality. LIVER: No significant focal abnormality. GALLBLADDER/BILE DUCTS: Cholecystectomy.? PANCREAS: No mass, ductal dilation, or emilee-pancreatic fluid. SPLEEN: Low density splenic lesion(s), statistically benign. ADRENALS: No adrenal masses. KIDNEYS AND URETERS: No hydronephrosis.Left nephrectomy.2 mm stone in the lower pole right kidney. No ureteral calculi. ABDOMINAL AORTA AND OTHER VESSELS: Mild atherosclerotic changes. PERITONEUM: No abnormal free fluid. No free air. LYMPH NODES: No pathologic lymphadenopathy. ABDOMINAL WALL: Unremarkable SMALL BOWEL/COLON: Small bowel has normal course and caliber. No colonic wall thickening or pericolon ic inflammatory changes.Normal appendix. URINARY BLADDER: Underdistended but grossly unremarkable. REPRODUCTIVE ORGANS: No pathologic process. MUSCULOSKELETAL: No acute or suspicious osseous abnormality. ADDITIONAL FINDINGS: None. IMPRESSION: Nonobstructive right nephrolithiasis. Left nephrectomy. No acute findings identified. Normal appendix .
--- NOTE | 2025-04-09 15:57 | ER ---
Nurse's Notes [facility] Name: Pamela Alcala Age: 49 yrs Sex: Female : 1975 Arrival Date: 04/09/2025 Time: 13:50 Bed 5 Private MD: Diagnosis: Calculus of kidney Presentation: 04/09 14:01 Chief complaint: Right flank pain, dysuria, and N/V since yesterday. Coronavirus hb screen: At this time, the client does not indicate any symptoms associated with coronavirus-19. Ebola Screen: No symptoms or risks identified at this time. Initial Sepsis Screen: Does the patient meet any 2 criteria? No. Patient's initial sepsis screen is negative. Does the patient have a suspected source of infection? No. Patient's initial sepsis screen is negative. Risk Assessment: Do you want to hurt yourself or someone else? Patient reports no desire to harm self or others. Onset of symptoms was April 08, 2025. 14:01 Method Of Arrival: Ambulatory hb 14:01 Acuity: CROW 3 hb Historical: - Allergies: 14:37 morphine (Hives); localized; aa5 - Home Meds: 14:03 Bupropion Oral [Active]; Flomax Oral [Active]; Metformin Oral [Active]; hb - PMHx: 14:02 Kidney stones; hb 14:03 PCOS; HTN; hb - PSHx: 14:03 2 kidney stents; Cholecystectomy; hysterectomy; hb 14:03 Left Nephrectomy; hb - Immunization history:: Adult Immunizations unknown. - Infectious Disease History:: Denies. - Family history:: not pertinent. - Hospitalizations: : No recent hospitalization is reported. - Social history:: Smoking status: unknown. Screenin:05 [facility] ED Fall Risk Assessment (Adult) History of falling in the last 3 months, aa5 including since admission No falls in past 3 months (0 pts) Confusion or Disorientation No (0 pts) Intoxicated or Sedated No (0 pts) Impaired Gait No (0 pts) Mobility Assist Device Used No (0 pt) Altered Elimination No (0 pt) Score/Fall Risk Level 0 - 2 = Low Risk Oriented to surroundings, Maintained a safe environment, Educated pt \\T\\ family on fall prevention, incl call for assistance when getting out of bed, Assessed \\T\\ reinforced patient's understanding of fall precautions. Abuse screen: Denies threats or abuse. Nutritional screening: No deficits noted. Tuberculosis screening: No symptoms or risk factors identified. Assessment: 14:05 General: Appears comfortable, Behavior is calm, cooperative. Pain: Complains of pain in aa5 right flank Pain currently is 7 out of 10 on a pain scale. Quality of pain is described as sharp, Pain began 1 day ago. Is continuous. Neuro: Level of Consciousness is awake, alert, obeys commands, Oriented to person, place, time, situation. Cardiovascular: Patient's skin is warm and dry. Respiratory: Airway is patent Respiratory effort is even, unlabored, Respiratory pattern is regular, symmetrical. GI: Abdomen is round non-distended, Bowel sounds present X 4 quads. Abd is soft and non tender X 4 quads. Reports nausea, vomiting. : Reports dysuria. EENT: No signs and/or symptoms were reported regarding the EENT system. Derm: Skin is pink, warm \\T\\ dry. Musculoskeletal: Range of motion: intact in all extremities. 14:22 Reassessment: To bedside to check on pt, pt currently in radiology . aa5 14:33 Reassessment: Pt back from CT scan, pt reports feeling better, hives noted to IV site aa5 at this time, MD was notified. . 14:33 Reassessment: Patient is alert, oriented x 3, equal unlabored respirations, skin aa5 warm/dry/pink. 15:00 Reassessment: Patient is alert, oriented x 3, equal unlabored respirations, skin aa5 warm/dry/pink. Hives to IV site have improved, pt denies any complaints. . 15:24 Reassessment: Patient is alert, oriented x 3, equal unlabored respirations, skin aa5 warm/dry/pink. Patient states feeling better. 15:48 Reassessment: Patient is alert, oriented x 3, equal unlabored respirations, skin aa5 warm/dry/pink. MD at bedside speaking to pt . 16:12 Reassessment: Patient appears in no apparent distress at this time. Patient and/or iw family updated on plan of care and expected duration. Pain level reassessed. Patient is alert, oriented x 3, equal unlabored respirations, skin warm/dry/pink. Patient states feeling better. Patient states symptoms have improved. Vital Signs: 14:01 BP 106 / 90; Pulse 90; Resp 16; Temp 98.6(O); Pulse Ox 98% on R/A; Weight 70.31 kg; hb Height 5 ft. 4 in. ; Pain 7/10; 14:16 BP 112 / 75; Pulse 80; Resp 18 S; Pulse Ox 97% on R/A; aa5 15:24 BP 95 / 64; Pulse 79; Resp 16 S; Pulse Ox 100% on R/A; aa5 15:48 BP 103 / 73; Pulse 74; Resp 16 S; Pulse Ox 98% on R/A; aa5 14:01 Body Mass Index 26.61 (70.31 kg, 162.56 cm) hb 14:01 Pain Scale: Adult hb ED Course: 13:53 Patient arrived in ED. ts1 13:53 Balbir Cam MD is Attending Physician. rn 13:58 Cristina Donato RN is Primary Nurse. aa5 14:02 Triage completed. hb 14:05 Initial lab(s) drawn, by me, sent to lab. Inserted saline lock: 20 gauge in left aa5 forearm, using aseptic technique. Blood collected. Flushed with 10 mL NS. 14:05 Patient has correct armband on for positive identification. Bed in low position. Call aa5 light in reach. Side rails up X 1. Adult w/ patient. Pulse ox on. NIBP on. 14:05 Arm band placed on. iw 14:29 CT Stone Protocol In Process Unspecified. EDMS 15:25 No provider procedures requiring assistance completed. aa5 16:11 IV discontinued, intact, bleeding controlled, No redness/swelling at site. Pressure iw dressing applied. Administered Medications: 14:14 Drug: Ondansetron IVP 4 mg IVP once; over 2 minutes Route: IVP; Site: left forearm; aa5 14:16 Follow up: Response: No adverse reaction aa5 14:14 Drug: NS 0.9% IV 500 ml 500 ml IV at 1 bolus once; to be given as a bolus over 30 aa5 minutes Volume: 500 ml; Route: IV; Rate: 1 bolus; Site: left forearm; 16:12 Follow up: IV Status: Completed infusion iw 14:16 Drug: morphine IVP or IV 4 mg IVP once over 4 mins Route: IVP; Infused Over: 4 mins; aa5 Site: left forearm; 14:17 Follow up: Response: Pt c/o feeling hot all over, pt's skin is flushed and hot to the aa5 touch, pt also c/o "stinging sensation", no localized reaction noted. MD was notified. 14:33 Follow up: Hives localized to IV site at this time, MD was notified. aa5 14:33 Drug: diphenhydrAMINE IVP 25 mg IVP once Route: IVP; Site: left forearm; aa5 15:00 Follow up: Response: No adverse reaction aa5 14:33 Drug: MethylPrednisoLONE IVP 125 mg IVP once Route: IVP; Site: left forearm; aa5 15:00 Follow up: Response: No adverse reaction aa5 16:10 Drug: Ciprofloxacin PO 500 mg PO once Route: PO; iw 16:12 Follow up: Response: No adverse reaction iw Medication: 15:25 VIS not applicable for this client. aa5 Intake: Outcome: 15:56 Discharge ordered by MD. rn 16:11 Discharged to home ambulatory, with family, iw 16:11 Condition: good 16:11 Discharge instructions given to patient, family, Instructed on discharge instructions, follow up and referral plans. medication usage, Demonstrated understanding of instructions, follow-up care, medications, Prescriptions given X 3, 16:12 Patient left the ED. iw Signatures: Dispatcher [employer] EDMS Dara Miles RN RN iw Nieto, Roman, MD MD rn Calderon, Audri, RN RN aa5 Loly Torres RN RN hb Simpson, Tanya, PAS PAS ts1 Corrections: (The following items were deleted from the chart) 14:05 14:02 PMHx: Hypertension (Kidney stones); hb hb 14:05 14:02 PMHx: PCOS (Kidney stones); hb hb 14:05 14:02 PMHx: diabetes mellitus; hb hb 14:05 14:03 PMHx: HTN (hysterectomy); hb hb 14:05 14:03 PSHx: PCOS; hb hb 14:05 14:03 PMHx: Hypertensive disorder; hb hb 14:05 14:03 PMHx: "Kidney problems"; hb hb 14:29 14:00 Abuse screen: Denies threats or abuse. aa5 aa5 14 14:00 Nutritional screening: No deficits noted. aa5 aa5 14:29 14:00 Tuberculosis screening: No symptoms or risk factors identified. aa5 aa5 14: 14:00 [facility] ED Fall Risk Assessment (Adult) History of falling in the last 3 months, aa5 including since admission No falls in past 3 months (0 pts) Confusion or Disorientation No (0 pts) Intoxicated or Sedated No (0 pts) Impaired Gait No (0 pts) Mobility Assist Device Used No (0 pt) Altered Elimination No (0 pt) Score/Fall Risk Level 0 - 2 = Low Risk Oriented to surroundings, Maintained a safe environment, Educated pt \\T\\ family on fall prevention, incl call for assistance when getting out of bed, Assessed \\T\\ reinforced patient's understanding of fall precautions, aa5 14:37 14:02 Allergies: No Known Allergies; hb aa5
--- NOTE | 2025-04-09 15:57 | EDPHYS ---
Physician Documentation [facility] Name: Pamela Alcala Age: 49 yrs Sex: Female : 1975 Arrival Date: 04/09/2025 Time: 13:50 Bed 5 Private MD: ED Physician Balbir Cam HPI: 04/09 14:09 This 49 yrs old Female presents to ER via Ambulatory with complaints of Possible Kidney rn Stone. 14:09 Patient reports right flank pain associated with dysuria. Subjective fever and chills. rn No trauma. Has had kidney stones before. Pain started last night and became more constant this morning. Historical: - Allergies: 14:37 morphine (Hives); localized; aa5 - Home Meds: 14:03 Bupropion Oral [Active]; Flomax Oral [Active]; Metformin Oral [Active]; hb - PMHx: 14:02 Kidney stones; hb 14:03 PCOS; HTN; hb - PSHx: 14:03 2 kidney stents; Cholecystectomy; hysterectomy; hb 14:03 Left Nephrectomy; hb - Immunization history:: Adult Immunizations unknown. - Infectious Disease History:: Denies. - Family history:: not pertinent. - Hospitalizations: : No recent hospitalization is reported. - Social history:: Smoking status: unknown. ROS: 14:09 Constitutional: Positive for fever and chills Eyes: Negative for injury, pain, redness, rn and discharge, Neck: Negative for injury, pain, and swelling, Cardiovascular: Negative for chest pain, palpitations, and edema, Respiratory: Negative for shortness of breath, cough, wheezing, and pleuritic chest pain, Abdomen/GI: Positive for nausea Back: Positive for right flank pain : Positive for dysuria MS/Extremity: Negative for injury and deformity, Skin: Negative for injury, rash, and discoloration, Neuro: Negative for headache, weakness, numbness, tingling, and seizure, Exam: 14:09 Constitutional: This is a well developed, well nourished patient who is awake, alert, rn and in no acute distress. Cardiovascular: Regular rate and rhythm. No pulse deficits. Respiratory: No increased work of breathing, no retractions or nasal flaring. Abdomen/GI: Soft, non-tender Back: No CVA tenderness MS/ Extremity: Pulses equal, no cyanosis. Neurovascular intact. Full, normal range of motion. Equal circumference. Neuro: Awake and alert, GCS 15 Vital Signs: 14:01 BP 106 / 90; Pulse 90; Resp 16; Temp 98.6(O); Pulse Ox 98% on R/A; Weight 70.31 kg; hb Height 5 ft. 4 in. ; Pain 7/10; 14:16 BP 112 / 75; Pulse 80; Resp 18 S; Pulse Ox 97% on R/A; aa5 15:24 BP 95 / 64; Pulse 79; Resp 16 S; Pulse Ox 100% on R/A; aa5 15:48 BP 103 / 73; Pulse 74; Resp 16 S; Pulse Ox 98% on R/A; aa5 14:01 Body Mass Index 26.61 (70.31 kg, 162.56 cm) hb 14:01 Pain Scale: Adult hb MDM: 13:53 Medical Screening Exam initiated rn 15:54 Differential diagnosis: nephrolithiasis, pyelonephritis, UTI. Data reviewed: vital rn signs, nurses notes, lab test result(s), radiologic studies, CT scan, and as a result, I will discharge patient. 15:55 Independent interpretation of the following test(s) in the Emergency Department CT rn Scan: My interpretation is CT stone protocol images show proximal right kidney stone per my interpretation.. Counseling: I had a detailed discussion with the patient and/or guardian regarding the historical points, exam findings, and any diagnostic results supporting the discharge/admit diagnosis, lab results, radiology results, the need for outpatient follow up, to return to the emergency department if symptoms worsen or persist or if there are any questions or concerns that arise at home. Response to treatment: the patient's symptoms have mildly improved after treatment, and as a result, I will discharge patient. Special discussion: I discussed with the patient/guardian in detail that at this point there is no indication for admission to the hospital. It is understood, however, that if the symptoms persist or worsen the patient needs to return immediately for re-evaluation. ED course: I have personally reviewed all of the results, including but not limited to blood tests and imaging deemed necessary to safely discharge this patient at this time. All results given to and printed out for patient. I personally went over all the results with the patient and answered all questions. Patient will follow-up with PCP and or specialist as discussed. Return precautions given and understood.. 04/09 13:54 Order name: CBC with Diff; Complete Time: 14:44 rn 04/09 13:54 Order name: CMP; Complete Time: 14:33 rn 04/09 13:54 Order name: Lipase; Complete Time: 14:33 rn 04/09 13:54 Order name: UA Rfx Syd Cult if indicated; Complete Time: 14:33 rn 04/09 13:54 Order name: CT Stone Protocol; Complete Time: 14:43 rn 04/09 13:54 Order name: IV Saline Lock; Complete Time: 14:05 rn 04/09 13:54 Order name: Labs collected and sent; Complete Time: 14:05 rn Administered Medications: 14:14 Drug: Ondansetron IVP 4 mg IVP once; over 2 minutes Route: IVP; Site: left forearm; aa5 14:16 Follow up: Response: No adverse reaction aa5 14:14 Drug: NS 0.9% IV 500 ml 500 ml IV at 1 bolus once; to be given as a bolus over 30 aa5 minutes Volume: 500 ml; Route: IV; Rate: 1 bolus; Site: left forearm; 16:12 Follow up: IV Status: Completed infusion iw 14:16 Drug: morphine IVP or IV 4 mg IVP once over 4 mins Route: IVP; Infused Over: 4 mins; aa5 Site: left forearm; 14:17 Follow up: Response: Pt c/o feeling hot all over, pt's skin is flushed and hot to the aa5 touch, pt also c/o "stinging sensation", no localized reaction noted. MD was notified. 14:33 Follow up: Hives localized to IV site at this time, MD was notified. aa5 14:33 Drug: diphenhydrAMINE IVP 25 mg IVP once Route: IVP; Site: left forearm; aa5 15:00 Follow up: Response: No adverse reaction aa5 14:33 Drug: MethylPrednisoLONE IVP 125 mg IVP once Route: IVP; Site: left forearm; aa5 15:00 Follow up: Response: No adverse reaction aa5 16:10 Drug: Ciprofloxacin PO 500 mg PO once Route: PO; iw 16:12 Follow up: Response: No adverse reaction iw Disposition Summary: 04/09/25 15:56 Discharge Ordered Notes: Location: Home rn Problem: new rn Symptoms: have improved rn Condition: Stable rn Diagnosis - Calculus of kidney rn Followup: rn - With: Private Physician - When: As needed - Reason: Recheck today's complaints, Re-evaluation by your physician Discharge Instructions: - Discharge Summary Sheet rn - Kidney Stones rn - Renal Colic rn Forms: - Medication Reconciliation Form rn - Antibiotic controlled atmospheric furnace brazer - Prescription Opioid Use rn - Patient Portal Instructions rn - Leadership Thank You Letter rn Prescriptions: - ondansetron 4 mg Oral Tablet,disintegrating - take 1 tablet ORAL route every 8 hours As needed as needed for nausea and rn vomiting; 12 tablet; Refills: 0, Product Selection Permitted - Cipro 500 mg Oral Tablet - take 1 tablet ORAL route every 12 hours for 10 days; 20 tablet; Refills: 0, rn Product Selection Permitted - Tramadol 50 mg Oral Tablet - take 1 tablet ORAL route every 8 hours as needed; 12 tablet; Refills: 0, rn Product Selection Permitted Signatures: Dispatcher [employer] Dara Wilkes RN RN iw Nieto, Roman, MD MD rn Calderon, Audri, RN RN aa5 Loly Torres RN RN hb Corrections: (The following items were deleted from the chart) 14:05 14:02 PMHx: Hypertension (Kidney stones); hb hb 14:05 14:02 PMHx: PCOS (Kidney stones); hb hb 14:05 14:02 PMHx: diabetes mellitus; hb hb 14:05 14:03 PMHx: HTN (hysterectomy); hb hb 14:05 14:03 PSHx: PCOS; hb hb 14:05 14:03 PMHx: Hypertensive disorder; hb hb 14:05 14:03 PMHx: "Kidney problems"; hb hb 14:37 14:02 Allergies: No Known Allergies; hb aa5
[2025-04-09] MEDS ORDERED: CIPROFLOXACIN HCL 500 MG TAB ONE (15:59)
[2025-04-09 16:24] VITALS: TEMP 98.6
[2025-04-09 16:29] VITALS: BP 103/73; O2SAT 98
== END 2025-04-09 16:12 | disposition home or self-care (01) ==
LOC: ER 13:50
DX: N20.0 Calculus of kidney (principal); R30.0 Dysuria; R10.9 Unspecified abdominal pain
CPT/HCPCS: 96361; 85025; 81001; 36415; 83690; 80053; 76377; 74176; 96375; 96374; 99284; J1200; J2919; J2405; J7040